=== PATIENT | male | born 1970 | race Caucasian/White ===

== ENCOUNTER 2020-08-25 13:55 | Outpatient (CLI) | payer OTHER, SELFPAY ==
--- NOTE | ~2020-08-25 | US_ITS ---
EXAMINATION: US venous doppler [facility] DATE: 08/25/2020 15:27 INDICATION: Lower limb pain. TECHNIQUE: Grayscale ultrasound images without and with compression and Doppler ultrasound images of the bilateral lower extremity veins were obtained. COMPARISON: None. FINDINGS: The visualized portions of right common femoral vein, profunda (deep) femoral vein, femoral vein, pop liteal vein, peroneal veins, posterior tibial veins, and greater saphenous vein outflow are patent. The visualized portions of left common femoral vein, profunda femoral vein, femoral vein, popliteal v ein, peroneal veins, posterior tibial veins, and greater saphenous vein outflow are patent. IMPRESSION: 1. No deep venous thrombosis. Reviewed, dictated and finalized at location A.
== END 2020-08-25 13:56 | disposition home or self-care (01) ==
PROVIDERS: PCP Family Medicine; Visit Provider Physician Assistant Medical
DX: M79.606 Pain in leg, unspecified (principal); M79.89 Other specified soft tissue disorders
CPT/HCPCS: 93970

== ENCOUNTER 2020-08-30 13:30 | Inpatient (IN) | payer OTHER, SELFPAY ==
[2020-08-30] VITALS (8 sets, daily range): BP systolic 137–150; BP diastolic 68–88; PULSE 58–97; RESP 18–24; TEMP 36.3–37.4; O2SAT 82–100; BMI 48.2
--- NOTE | ~2020-08-30 | US_ITS ---
US right upper quadrant DATE: 08/31/2020 16:35 INDICATION: Elevated liver function tests TECHNIQUE: Real-time imaging and Doppler analysis, right upper quadrant COMPARISON: None FINDINGS: Examination is limited due to body habitus. Consider CT abdomen examination for more detail . There is heterogeneous echotexture of the liver with suggestion of fatty infiltration. Hepatic space- occupying mass lesion is not excluded. CT examination with IV contrast material or MRI examination wo uld be helpful for further evaluation. There is pulsatile to and fro flow in the portal vein. No gallstones or gallbladder wall thickening or abnormal pericholecystic fluid collection are noted. The common bile duct measures approximately 6 mm, borderline size. IMPRESSION: Heterogeneous echotexture of the liver; consider CT abdomen or MRI abdomen examination wi th particular attention to the liver Reviewed, dictated and finalized at Location A. Reviewed, dictated and finalized at location B. IMPRESSION: Heterogeneous echotexture of the liver; consider CT abdomen or MRI abdomen examination with particular attention to the liver
--- NOTE | ~2020-08-30 | XR_ITS ---
EXAMINATION: XR chest 1V portable DATE: 08/30/2020 14:17 INDICATION: Shortness of breath. TECHNIQUE: A single frontal view of the chest was obtained. COMPARISON: Chest 2 views 08/06/2017 FINDINGS: The patient is rotated to his right. There is mild atelectasis in the lower lung zones. The re are prominent paracardial fat pads. No pleural effusion or pneumothorax. The heart size is normal. IMPRESSION: 1. Mild atelectasis in the lower lung zones. Reviewed, dictated and finalized at location A.
--- NOTE | ~2020-08-30 | XR_ITS ---
EXAMINATION: XR chest 1V portable EXAM DATE: 09/01/2020 10:20 INDICATION: Hypoxia. TECHNIQUE: Portable AP frontal chest x-ray was obtained. Comparison is made to prior examination from 08/31/2020. FINDINGS: The cardiac silhouette is enlarged. There is pulmonary vascular congestion. There is indist inct reticulation with a bibasal predominance which may indicate pulmonary edema. 4 pronounced linear opacity consistent with atelectasis in the right lung zone. Otherwise no significant interval change in findings suspicious for CHF exacerbation. Possible small pleural effusions. There are no osseous abnormalities identified. IMPRESSION: 1. Congestive changes, possible mild pulmonary edema. 2. Developing linear right basilar opacity most consistent with atelectasis. Infection not excludabl e. Reviewed, dictated and finalized at location A. IMPRESSION: 1. Congestive changes, possible mild pulmonary edema. 2. Developing linear right basilar opacity most consistent with atelectasis. I nfection not excludable.
--- NOTE | ~2020-08-30 | CT_ITS ---
EXAMINATION: CTA chest PE protocol DATE: 08/30/2020 15:01 INDICATION: Chest pain. Low oxygen saturation. TECHNIQUE: Computed tomography angiography (CTA) of the chest was performed with 100 mL Omnipaque-350 intravenous contrast timed to evaluate the pulmonary arteries. Coronal maximum intensity projection 3D-reconstructions were created by the technologist. Automated exposure control and iterative reconst ruction technique were employed. The dose-length product was 1067.89 mGy-cm. COMPARISON: Chest single view 08/30/2020 FINDINGS: There is mild atelectasis in the inferior lungs. There is a right posterior diaphragmatic h ernia containing fat. Mediastinal lipomatosis is noted. There is a left-sided superior vena cava. The re is interruption of the inferior vena cava with hemiazygos continuation. The heart size is normal. No pericardial effusion. Main pulmonary artery is enlarged, consistent with pulmonary arterial hypert ension. There is no pulmonary embolus. There is an old healed right rib fracture. There is chronic an terior wedging of T11 and T12 vertebral bodies. IMPRESSION: 1. No pulmonary embolus. Sensitivity is mildly decreased by motion artifact. Reviewed, dictated and finalized at location A.
--- NOTE | ~2020-08-30 | XR_ITS ---
EXAMINATION: XR chest 1V portable EXAM DATE: 08/31/2020 12:21 INDICATION: Shortness breath, diaphoresis. TECHNIQUE: Portable AP frontal chest x-ray was obtained. Comparison is made to prior examination from 08/30/2020. FINDINGS: There is pulmonary vascular congestion. There is indistinct reticulation with a bibasal pre dominance which may indicate pulmonary edema. Possible small right pleural effusion. No confluent con solidation or pneumothorax. IMPRESSION: Most consistent with CHF exacerbation. Clinical correlation. Reviewed, dictated and finalized at location A.
--- NOTE | ~2020-08-30 | MR_ITS ---
EXAMINATION: MR abdomen wo/w con DATE: 09/02/2020 08:44 INDICATION: Abnormal liver ultrasound. TECHNIQUE: Magnetic resonance imaging (MRI) of the abdomen was performed without and with 20 mL Multi sola intravenous contrast. Sequences included coronal T2-weighted SS-FSE, coronal and axial FS 2D-F IESTA, axial STIR FSE, axial T2-weighted SS-FSE, axial T2-weighted FS SS-FSE, axial diffusion-weighte d SE, axial dual-echo T1-weighted FSPGR, and axial and coronal T1-weighted LAVA. Postcontrast axial T 1-weighted LAVA images were obtained in a time course. Postcontrast coronal T1-weighted LAVA images w ere obtained. COMPARISON: Ultrasound dated 08/31/[address] dated 08/30/2020 FINDINGS: Linear bands of discoid atelectasis in the bilateral lower lobes and right middle lobe with additiona l dependent consolidation in the posterior aspect of the bilateral lower lobes. Small fat-containing Bochdalek hernia at the posterior right lung base. Trace bilateral pleural effusion. Cardiomegaly. No pericardial effusion. Hepatomegaly with heterogeneous pattern of signal dropout throughout the liver on opposed phase images consistent with diffuse hepatic steatosis which likely accounts for the appe arance on prior ultrasound. No other abnormal hepatic parenchymal lesions. No intra or extra hepatic biliary ductal dilation. Splenosis in the left upper quadrant. Gallbladder, pancreas, bilateral adren al glands and kidneys are normal. Visualized portions of the bowels are unremarkable. No pathological ly enlarged abdominal lymphadenopathy. Bones are unremarkable with normal marrow signal. IMPRESSION: 1. Hepatomegaly with heterogeneous diffuse hepatic steatosis which likely account for the heterogeneo us echogenicity on prior ultrasound. No suspicious hepatic lesions identified. 2. Trace bilateral pleural effusions with consolidation in the dependent aspect of the bilateral lowe r lobes most likely atelectasis although differential includes pneumonia. Reviewed, dictated and finalized at location A. IMPRESSION: 1. Hepatomegaly with heterogeneous diffuse hepatic steatosis which likely accou nt for the heterogeneous echogenicity on prior ultrasound. No suspicious hepati c lesions identified. 2. Trace bilateral pleural effusions with consolidation in the dependent aspect of the bilateral lower lobes most likely atelectasis although differential inc ludes pneumonia.
--- NOTE | ~2020-08-30 | XR_ITS ---
EXAMINATION: XR chest 2V EXAM DATE: 09/03/2020 08:10 INDICATION: Bilateral leg cellulitis. Hypoxia. TECHNIQUE: Portable AP frontal chest x-ray was obtained. Comparison is made to prior examination from 09/01/2020. FINDINGS: Again there is cardiomegaly. There is improvement in the previously pulmonary vascular bubba estion and indistinct reticulation. Small amount of bibasilar linear atelectasis. Mild hyperinflation . No pneumothorax. Small pleural effusions. IMPRESSION: 1. Improving congestive changes. 2. Linear bibasilar atelectasis. 3. Small pleural effusions. Reviewed, dictated and finalized at location A.
--- NOTE | 2020-08-30 13:46 | ECG_ITS ---
Measurements Intervals [place] Rate: 94 P: 16 CO: 107 QRS: 102 QRSD: 113 T: 63 QT: 362 QTc: 455 Interpretive Statements SINUS RHYTHM WITH SHORT CO INTERVAL RIGHT AXIS DEVIATION INCOMPLETE RIGHT BUNDLE BRANCH BLOCK BORDERLINE T WAVE ABNORMALITY- INFERIOR LEADS BASELINE ARTIFACT- V1, V5-V6 BORDERLINE ECG Electronically Signed On 08-30-2020 14:02:38 CDT by Umair Ramirez D.O.
--- NOTE | 2020-08-30 13:49 | ED.GENADULT ---
HPI - General Adult General Chief complaint: Skin/Abscess/Foreign Body Stated complaint: CELLULITIS ON MY LEG Time Seen by Provider: 08/30/20 13:34 Source: patient Mode of arrival: ambulatory Limitations: no limitations History of Present Illness HPI narrative: Patient is a 50-year-old male who presents from Dr. Bui's office for evaluation of right leg redness and swelling that is been present for 1 week patient was placed on Bactrim which she has taken for 5 days started on clindamycin for the last 2 days patient was seen today in the clinic and was sent in for worsening swelling and redness patient denies similar occurrence in the past patient notes no injury or trauma patient presents hypoxic and notes that he smokes over a pack per day and is always in the 80s patient denies dyspnea or URI symptoms. Related Data Allergies Allergy/AdvReac Type Severity Reaction Status Date / Time No Known Allergies Allergy Verified 08/30/20 12:48 Review of Systems Review of Systems: All systems reviewed & are unremarkable except as noted in HPI and below PMFSH Past Medical History Medical History (Updated 08/30/20 @ 17:42 by Jasper Licea PA-C) Morbid obesity Tobacco abuse Social History Social History Smoking status: Current every day smoker Alcohol intake: never Gender identity (if verbalized by the patient): Male Exam Narrative: Exam Narrative: GENERAL: Well-appearing, morbidly obese, and in no acute distress. HEAD: Normocephalic, atraumatic. EYES: PERRLA and EOMI. ENT: Nares clear, no rhinorrhea or epistaxis. Mucous membranes moist. Oropharynx without tonsillar hypertrophy exudate or other lesions. NECK: Supple. No adenopathy or masses. CHEST: Diminished on auscultation. No respiratory distress. Coarse breath sounds and wheezing throughout the lung leos HEART: Regular rate and rhythm. No murmur heard. Normal peripheral pulses. ABDOMEN: Soft, nontender, nondistended, normal active bowel sounds. EXTREMITIES: Normal range of motion. No edema. Patient with redness and swelling extending from the level of the ankle up into the lower abdomen and pannus SKIN: Warm, dry, no rash. NEURO: No focal deficits. Alert and oriented x3. Neurovascularly intact. Capillary refill less than 2 seconds PSYCH: Normal mood and affect. Course Reevaluation(s) Reevaluation #1: Patient refusing any updraft treatment for his wheezing Date: 08/30/20 Time: 13:52 Consultations Consultation #1: Discussed case with hospitalist who is agreed to accept the patient Date: 08/30/20 Time: 17:40 Vital Signs Vital signs: Vital Signs Temperature 99.3 F 08/30/20 13:41 Pulse Rate 97 08/30/20 13:41 Respiratory Rate 08/30/20 13:41 Blood Pressure 141/88 H 08/30/20 13:41 Pulse Oximetry 82 L 08/30/20 13:41 Temperature 99.3 F 08/30/20 13:41 Pulse Rate 58 L 08/30/20 15:00 Respiratory Rate 18 08/30/20 15:00 Blood Pressure 150/83 H 08/30/20 15:00 Pulse Oximetry 90 08/30/20 15:00 Medical Decision Making MDM Narrative Medical decision making narrative: Patient in the room will be treated for cellulitis refused any treatment of his COPD related symptoms to include breathing treatment was made aware of the risks of hypoxemia is still refusing to do so patient would likely hypoxemic hypercarbic respiratory distress secondary to possible sleep apnea and COPD. Patient will be placed in hospital treated with fluids and antibiotic Vital Signs Vital Signs: Vital Signs Temperature 99.3 F 08/30/20 13:41 Pulse Rate 97 08/30/20 13:41 Respiratory Rate 08/30/20 13:41 Blood Pressure 141/88 H 08/30/20 13:41 Pulse Oximetry 82 L 08/30/20 13:41 Temperature 99.3 F 08/30/20 13:41 Pulse Rate 58 L 08/30/20 15:00 Respiratory Rate 18 08/30/20 15:00 Blood Pressure 150/83 H 08/30/20 15:00 Pulse Oximetry 90 08/30/20 15:00 Lab Data Resul
[2020-08-30 14:01] LABS: Alveolar/Arterial O2 Gradient 105.3 mmHg; Base Excess ABG 2.5 mEq/l (+/-2.0); Fractional Inspired Oxygen 32 %; HCO3 ABG 29.5 mEq/l (22.0-26.0); Methemoglobin ABG 0.2 %THb (0-1.5); Oxygen Content ABG 21.2 %vol (16.0-22.0); Oxyhemoglobin 83.8 % THb (90.0-100.0); PCO2 ABG 53.3 mmHg (35.0-45.0); PO2 ABG 60.5 mmHg (80.0-100.0); PO2 FiO2 Ratio Arterial Blood 1.89 %; pH ABG 7.361 (7.350-7.450)
[2020-08-30 14:02] LABS: Device NASAL CANNULA; Modified Allen's Test Pass; Site Drawn RIGHT RADIAL
[2020-08-30 14:24] LABS: Basophils Absolute Auto 0.1 K/mm3 (0.0-0.1); Basophils Percent Auto 0.6 % (0.2-1.2); Eosinophils Absolute Auto 0.1 K/mm3 (0-0.3); Eosinophils Percent Auto 1.2 % (0-4.4); Hematocrit 53.5 % (42.0-52.0); Hemoglobin 17.5 g/dL (14.0-18.0); Immature Granulocyte Absolute 0.05 K/mm3 (0.00-0.031); Immature Granulocyte Percent A 0.6 % (0-0.5); Lymphocytes Absolute Auto 1.37 K/mm3 (0.9-3.2); Lymphocytes Percent Auto 15.4 % (18.3-44.2); Mean Corpuscular HGB Conc 32.7 g/dl (32-36); Mean Corpuscular Hemoglobin 32.7 pg (26-34); Mean Platelet Volume 11.2 fl (7.4-10.4); Neutrophils Absolute Auto 6.3 K/mm3 (1.3-6.7); Neutrophils Percent Auto 71.2 % (45.5-73.1); Platelet Count Result 197 k/mm3 (150-375); Red Blood Count 5.35 M/mm3 (4.6-6.20); Red Cell Distribution Width 13.8 % (11.5-14.5); White Blood Count 8.9 K/mm3 (4.5-10.0)
[2020-08-30] MEDS: SODIUM CHLORIDE 0.9% IV 1,000 ML 999 ML IV CONT (14:25)
[2020-08-30 14:33] LABS: INR 1.2; Prothrombin Time 14.6 Seconds (11.1-14.7)
[2020-08-30 14:34] LABS: Partial Thromboplastin Time 30.4 SECONDS (22.3-36.8)
[2020-08-30 14:42] LABS: Alanine Aminotransferase 106 U/L (4-50); Albumin Level 3.7 g/dL (3.5-5.1); Alkaline Phosphatase 128 U/L (38-126); Anion Gap 4 mmol/L (8-16); Aspartate Amino Transferase 62 U/L (17-59); Bilirubin,Total 0.8 mg/dL (0.2-1.3); Blood Urea Nitrogen 15 mg/dL (9-20); CRP 4.4 mg/dL (<1.0); Calcium 9.3 mg/dL (8.4-10.2); Carbon Dioxide 38 mmol/L (22-30); Chloride 95 mmol/L (98-107); Estimated CRCL calculation 193 ml/min; Estimated Glomerular Filt Rate > 60; Glucose 276 mg/dL (75-110); Potassium 4.8 mmol/L (3.4-5.0); Sodium 137 mmol/L (137-145)
[2020-08-30 14:44] LABS: NT Pro B Type Natriuretic Pept 108 PG/ML (5-100)
[2020-08-30 14:51] LABS: Lactic Acid Reflex 0.9 mmol/L (0.7-2.1)
[2020-08-30 14:54] LABS: Estimated CRCL calculation 193 ml/min; Estimated Glomerular Filt Rate > 60
--- NOTE | 2020-08-30 18:48 | PC.NURSE ---
Called to give report on pt and was told by Kym that nurse was in another room and will call me back.
--- NOTE | 2020-08-30 18:51 | PC.NURSE ---
This RN into pts room to go over belongings sheet. Pts O2 was at 86 on 4L NC. This RN informed GREG Licea of this and he stated to put pt on a non rebreather and keep him at 4L. This RN back into pts room to put him on non rebreather and inform him why and pt declined. Informed GREG Bhakta of this.
--- NOTE | 2020-08-30 19:15 | PC.NURSE ---
called again to give report and was told that they were in the middle of report and to hold on. Had to answer a call light and had to hang up after 7 minutes of being on hold.
[2020-08-30] MEDS: LACTATED RINGERS 1,000 ML 125 ML IV CONT (21:20)
[2020-08-30] MEDS: FAMOTIDINE 20 MG/2 ML VIAL IV PUSH (21:22)
[2020-08-30] MEDS: IPRATROPIUM BR 0.02% INH SOLN 0.5 MG/2.5 ML VIAL INHALATION (21:26)
[2020-08-30] MEDS: ALBUTEROL SULFATE NEB 2.5 MG/0.5 ML INH 5 MG INHALATION (21:26)
--- NOTE | 2020-08-30 22:06 | PM.IMHP ---
H&P: HPI History of Present Illness Date/Time: 08/30/20 22:06 Chief complaint: Cellulitis, hypoxemia, hyperglycemia, COPD Narrative: Haja Arroyo is a 50 year old male With a past medical history of asthma. The patient called on 08/10/2020 to the primary care office and was given inhalers. The patient was wheezing at that time. He said he had a asthma attack after cutting grass. On 08/25/2020 the patient had increased swelling to right lower extremity for couple days in the pain was getting worse. Patient does have a history of peripheral vascular disease with chronic venous stasis. He is also a current smoker. He had venous Dopplers at that time and he reported them as negative. The patient was started on Bactrim. Patient call in on 08/30/2020 to primary care office and had been on Bactrim for 5 days and clindamycin for 2 days. Dopplers were noted to be negative. Patient was sent to the emergency for further evaluation. The patient has redness noted from his ankle all the way up past his umbilical area. He has redness tenderness the right leg is warm to touch. He has noted to have chronic venous stasis. Patient denies any chronic diseases other than asthma. His white count was noted to be normal today. His CT a from today was negative for pulmonary emboli. Patient was also hypoxic and short of breath so he had oxygen apply at 4 L per nasal cannula at the emergency room here. His chest x-ray was read as mild atelectasis in the lower lung zone. Patient was ordered IV Tylenol and started on vancomycin. He was started on IV fluids as well. Patient was admitted to inpatient to medical floor date of service on 08/30/2020 Review of Systems Review of Systems: All systems reviewed & are unremarkable except as noted in HPI and below Constitutional: Constitutional: Reports as per HPI and Reports no additional constitutional complaints Eyes: Eyes: Reports as per HPI and Reports no additional eye complaints ENT: Reports system reviewed and no additional complaints, except as documented and Reports Normal hearing present Cardiovascular: Cardiovascular: Reports no additional cardiovascular complaints Respiratory: Respiratory: Reports no additional respiratory complaints and Reports no additional respiratory complaints Gastrointestinal: Gastrointestinal: Reports as per HPI and Reports no additional gastrointestinal complaints Musculoskeletal: Musculoskeletal: Reports no additional musculoskeletal complaints Integumentary/Breasts: Skin/Breast: Reports system reviewed and no additional complaints, except as docu and Reports as per HPI Neurologic: Reports system reviewed and no additional complaints, except as documented, Reports as per HPI and Reports Normal hearing present Psychiatric: Psychiatric: Reports no additional psychiatric complaints and Reports as per HPI Endocrine: Endocrine: Reports no additional endocrine complaints Hematologic/Lymphatic: Hematologic/Lymphatic: Reports no additional hematologic/lymphatic complaints Allergic/Immunologic: Allergic/Immunologic: Reports no additional allergic/immunologic complaints [facility] Past Medical History Medical History (Updated 08/30/20 @ 22:15 by Tamara Guzman NP) Morbid obesity BMI 48.1 Peripheral vascular disease Tobacco abuse Surgical History Surgical History (Updated 08/30/20 @ 22:15 by Tamara Guzman NP) No pertinent past surgical history Family History Family History (Updated 08/30/20 @ 22:15 by Tamara Guzman NP) Unknown Unknown family medical history Social History Social History (Updated 08/30/20 @ 22:17 by Tamara Guzman NP) Social History: the patient is and lives with his . 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 Patient continues to smoke about a pack and half a cigarettes a day. He said he just quit about 12 hours ago. He denies any alcohol
[2020-08-30 22:12] LABS: Glucose Point of Care 223 (65-105)
[2020-08-31] VITALS (20 sets, daily range): BP systolic 117–174; BP diastolic 59–82; PULSE 83–94; RESP 16–28; TEMP 36–37; O2SAT 88–95
--- NOTE | 2020-08-31 | ECHO_ITS ---
Patient Info Name: Haja Arroyo Age: 50 years : 1970 Gender: Male Ht: 71 in Wt: 345 lbs BSA: 2.88 m2 HR: 88 bpm BP: 117 / 59 mmHg Technical Quality: Poor Exam Date: 08/31/2020 9:35 AM Exam Location: [facility] Patient Status: Inpatient Admit Date: 08/30/2020 Staff Ordering Physician: Tamara Guzman NP Straight Ruling Machine Operator: Zac Nguyễn RDCS, RT Attending Provider: Starr Alexandre PA-C Referring Physician: Megan OGLESBY; Exam Type: CA echo dop color flow w con Study Info Indications R60.0 - Localized edema Complete two-dimensional, color flow and Doppler transthoracic echocardiogram is performed with contrast to opacify the left ventricle and to improve the deliniation of the left ventricle endocardial borders. Summary 1. Technically suboptimal study due to poor sonographic images. 2. Definity contrast administered improved wall motion interpretation. 3. Left ventricular chamber dimension is normal. 4. Left ventricular systolic function is normal, estimated at 65-70%. 5. The left ventricular diastolic function is abnormal. 6. E/e' 11 is mildly elevated. 7. The aortic valve is not well visualized. 8. The mitral valve has not well visualized. 9. The tricuspid valve leaflets are not well visualized. 10. There is mild tricuspid valve regurgitation. Left Ventricle Technically suboptimal study due to poor sonographic images. Definity contrast administered improved wall motion interpretation. E/e' 11 is mildly elevated. Left ventricular chamber dimension is normal. Left ventricular systolic function is normal, estimated at 65-70%. The left ventricular diastolic function is abnormal. Right Ventricle Right ventricular chamber dimension is not well visualized. Left Atria Left atrial chamber dimension is not well visualized. Right Atria Right atrial chamber dimension is not well visualized. Aortic Valve The aortic valve is not well visualized. There is no aortic valve stenosis. There is no aortic valve regurgitation. Pulmonic Valve The pulmonic valve is not well visualized. Mitral Valve The mitral valve has not well visualized. There is no mitral valve stenosis. There is no mitral valve regurgitation. Tricuspid Valve The tricuspid valve leaflets are not well visualized. There is mild tricuspid valve regurgitation. Moderate pulmonary hypertension, estimated pulmonary arterial systolic pressure is 59 mmHg. Pericardium/Pleural There is no pericardial effusion. Inferior Vena Cava Normal inferior vena cava with >50% collapse upon inspiration consistent with normal right atrial pressure, 5 mmHg. Aorta The aortic root size at the sinus of Valsalva is not well visualized. Left Ventricular Outflow Tract Name Value Normal LVOT Doppler LVOT Peak Gradient 9 mmHg LVOT Mean Gradient 6 mmHg LVOT VTI 24.56 cm LVOT VTI/AV VTI Ratio 0.75 Mitral Valve Name Value Normal MV Doppler
[2020-08-31] MEDS: ALBUTEROL SULFATE NEB 2.5 MG/0.5 ML INH 5 MG INHALATION ×4 (02:15→21:28)
[2020-08-31] MEDS: IPRATROPIUM BR 0.02% INH SOLN 0.5 MG/2.5 ML VIAL INHALATION ×3 (02:15→13:15)
[2020-08-31] MEDS: methylPREDNISolone SOD SUCC 125 MG VIAL 60 MG IV PUSH ×2 (05:47→15:17)
[2020-08-31 05:59] LABS: Basophils Percent Auto 0.5 % (0.2-1.2); Eosinophils Absolute Auto 0.1 K/mm3 (0-0.3); Eosinophils Percent Auto 1.3 % (0-4.4); Hematocrit 53.5 % (42.0-52.0); Immature Granulocyte Absolute 0.04 K/mm3 (0.00-0.031); Immature Granulocyte Percent A 0.5 % (0-0.5); Lymphocytes Absolute Auto 0.83 K/mm3 (0.9-3.2); Lymphocytes Percent Auto 9.9 % (18.3-44.2); Mean Corpuscular HGB Conc 31.8 g/dl (32-36); Mean Corpuscular Hemoglobin 32.3 pg (26-34); Mean Corpuscular Volume 101.5 fl (80-100); Mean Platelet Volume 11.2 fl (7.4-10.4); Monocytes Absolute Auto 0.8 K/mm3 (0.1-0.6); Monocytes Percent Auto 9.5 % (2.6-8.5); Neutrophils Absolute Auto 6.6 K/mm3 (1.3-6.7); Neutrophils Percent Auto 78.3 % (45.5-73.1); Platelet Count Result 191 k/mm3 (150-375); Red Blood Count 5.27 M/mm3 (4.6-6.20); Red Cell Distribution Width 13.9 % (11.5-14.5); White Blood Count 8.4 K/mm3 (4.5-10.0)
[2020-08-31 06:23] LABS: Hemoglobin A1C 10.1 % (<5.7)
[2020-08-31 06:44] LABS: Anion Gap 3 mmol/L (8-16); Blood Urea Nitrogen 12 mg/dL (9-20); Calcium 8.7 mg/dL (8.4-10.2); Carbon Dioxide 37 mmol/L (22-30); Chloride 95 mmol/L (98-107); Estimated CRCL calculation 193 ml/min; Estimated Glomerular Filt Rate > 60; Glucose 310 mg/dL (75-110); Potassium 5.2 mmol/L (3.4-5.0); Sodium 135 mmol/L (137-145)
[2020-08-31 08:02] LABS: Glucose Point of Care 305 (65-105)
[2020-08-31] MEDS: INSULIN ASPART (*BKC) 100 UNITS/ML SUB-Q ×3 (08:26→18:54)
[2020-08-31] MEDS: FAMOTIDINE 20 MG/2 ML VIAL IV PUSH ×2 (08:31→22:15)
[2020-08-31] MEDS: ENOXAPARIN 40 MG/0.4 ML SYRINGE SUB-Q (08:31)
[2020-08-31 08:38] LABS: Alanine Aminotransferase 99 U/L (4-50); Albumin Level 3.5 g/dL (3.5-5.1); Alkaline Phosphatase 113 U/L (38-126); Aspartate Amino Transferase 53 U/L (17-59); Bilirubin,Total 0.7 mg/dL (0.2-1.3)
[2020-08-31 09:42] LABS: Hepatitis B Surface Antigen Negative (Negative)
[2020-08-31 09:47] LABS: Iron 70 ug/dL (49-181)
[2020-08-31 09:47] LABS: HAV RESULT Negative (Negative)
[2020-08-31 09:54] LABS: Hepatitis C Virus Antibody Negative (Negative)
[2020-08-31 09:57] LABS: Percent Iron Saturation 18 % (20-50)
[2020-08-31 09:59] LABS: Hepatitis B Surface Anti Res Negative
[2020-08-31] MEDS: PERFLUTREN LIPID MICROSPHERES 1.5 ML VIAL DILUTED TO 10 ML TOTAL VOLUME IV PUSH (10:15)
[2020-08-31 10:52] LABS: Folic Acid 9.8 ng/mL (2.76->20)
[2020-08-31 11:56] LABS: Glucose Point of Care 286 (65-105)
[2020-08-31 12:26] LABS: Alveolar/Arterial O2 Gradient 91.7 mmHg; Base Excess ABG 4.9 mEq/l (+/-2.0); Fractional Inspired Oxygen 34 %; HCO3 ABG 35.8 mEq/l (22.0-26.0); Oxygen Content ABG 22.6 %vol (16.0-22.0); Oxyhemoglobin 85.9 % THb (90.0-100.0); PO2 ABG 58.3 mmHg (80.0-100.0); PO2 FiO2 Ratio Arterial Blood 1.71 %; Total Hemoglobin 18.8 g/dL (12.0-18.0)
[2020-08-31 12:28] LABS: pH ABG 7.273 (7.350-7.450)
[2020-08-31 12:29] LABS: Oxygen Saturation ABG 85.4 % (95.0-100.0); PCO2 ABG 79.3 mmHg (35.0-45.0)
--- NOTE | 2020-08-31 12:29 | PM.IMPN ---
Progress Note: A&P Assessment and Plan (1) Acute metabolic encephalopathy: Code(s): G93.41 - Metabolic encephalopathy Status: Acute Assessment and Plan: The patient became more difficult to arouse with a change in his mental status with associated confusion, trouble with his speech. Stat ABG was completed which showed he has respiratory acidosis with a pH of 7.273, pCO2 79, HC03 of 35. ABG oxygen saturation was 85% on 3.5 L of oxygen via nasal cannula.. He is being moved to the IMU and placed on a continuous BiPAP and we will recheck an ABG in 1 hour. Stat labs were drawn and pending. Concerns he could also be having metabolic encephalopathy secondary to underlying cellulitis infection, will check a lactic acid, CBC and CMP. CXR showed CHF exacerbation with signs of pulmonary vascular congestion and pulmonary edema. Secondary to the IV fluids he received in the emergency department on arrival but he is not on any IV fluids on the floor. Will give a dose of IV Lasix 20 mg and monitor his input and output. We were going to get a CT brain but we will hold at this time and place the patient on BiPAP stat and recheck ABG after 1 hour. Continue monitoring patient's mental status. (2) Acute respiratory failure with hypoxia and hypercapnia: Code(s): J96.01 - Acute respiratory failure with hypoxia; J96.02 - Acute respiratory failure with hypercapnia Status: Acute Assessment and Plan: Most likely caused by asthma exacerbation with wheezing throughout and requiring oxygen via nasal cannula and now some signs of pulmonary congestion. The patient is resting on 3 L via nasal cannula and he was found to be altered. Chest x-ray showing pulmonary congestion and pulmonary edema. Give IV Lasix 1 time Continue with IV Solu-Medrol 60 mg Q 8 hours and DuoNeb treatments q.6 hours. He has we placed on a BiPAP due to his hypercapnia and altered mental status. Continue monitoring patient's respiratory status. Appreciate respiratory's assistance (3) Cellulitis: Code(s): L03.90 - Cellulitis, unspecified Status: Acute Assessment and Plan: Patient has been dealing with right leg cellulitis up to his stomach for 4 days and has failed outpatient treatment with clindamycin (2 days) and Bactrim (5 days). On arrival he was started on IV Primaxin and vancomycin for the treatment of cellulitis with the patient with diabetes There are line surrounding his erythema and it appears to have improved slightly with IV antibiotics. Blood cultures are pending. The patient is afebrile, and his white count is normal. Continue monitoring improvement of cellulitis, continue IV antibiotics. (4) Diabetes mellitus, new onset: Code(s): E11.9 - Type 2 diabetes mellitus without complications Status: Acute Assessment and Plan: New onset diabetes with a hemoglobin A1c of 10.1%. Will start him on sliding scale insulin as well as Lantus 20 units tonight. Will consult clinical trial educator and dietitian for further evaluation Education. Continue monitoring making adjustments to his insulin regimen for better control especially with IV Solu-Medrol and underlying infection. Continue monitoring glucose ACHS. Hypoglycemic protocol in place. Sliding scale insulin initiated. (5) Asthma exacerbation: Code(s): J45.901 - Unspecified asthma with (acute) exacerbation Status: Acute Assessment and Plan: Patient reports history of asthma since a young age and has multiple asthma exacerbations and hospitalizations in the past. 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 He is a smoker but states he quit prior to arrival. Pulmonology was consulted on the case for further evaluation. He is currently on 3 L via nasal cannula in found to alcantar
[2020-08-31 12:30] LABS: Device NASAL CANNULA; Liters per Minute 3.5 LPM; Modified Allen's Test Pass; Site Drawn RIGHT RADIAL
[2020-08-31 12:34] LABS: Basophils Percent Auto 0.5 % (0.2-1.2); Hematocrit 57.4 % (42.0-52.0); Hemoglobin 17.9 g/dL (14.0-18.0); Immature Granulocyte Absolute 0.06 K/mm3 (0.00-0.031); Immature Granulocyte Percent A 0.7 % (0-0.5); Lymphocytes Absolute Auto 0.25 K/mm3 (0.9-3.2); Mean Corpuscular HGB Conc 31.2 g/dl (32-36); Mean Corpuscular Hemoglobin 32.3 pg (26-34); Mean Corpuscular Volume 103.6 fl (80-100); Mean Platelet Volume 10.9 fl (7.4-10.4); Monocytes Absolute Auto 0.1 K/mm3 (0.1-0.6); Neutrophils Absolute Auto 7.8 K/mm3 (1.3-6.7); Neutrophils Percent Auto 94.8 % (45.5-73.1); Platelet Count Result 190 k/mm3 (150-375); Red Blood Count 5.54 M/mm3 (4.6-6.20); Red Cell Distribution Width 13.9 % (11.5-14.5); White Blood Count 8.2 K/mm3 (4.5-10.0)
[2020-08-31 12:48] LABS: Lactic Acid Reflex 1.2 mmol/L (0.7-2.1)
[2020-08-31 12:49] LABS: Alanine Aminotransferase 100 U/L (4-50); Albumin Level 3.8 g/dL (3.5-5.1); Alkaline Phosphatase 135 U/L (38-126); Anion Gap 1.99999 mmol/L (8-16); Aspartate Amino Transferase 47 U/L (17-59); Bilirubin,Total 0.9 mg/dL (0.2-1.3); Blood Urea Nitrogen 12 mg/dL (9-20); Calcium 9.1 mg/dL (8.4-10.2); Carbon Dioxide > 40 mmol/L (22-30); Chloride 93 mmol/L (98-107); Estimated CRCL calculation 193 ml/min; Estimated Glomerular Filt Rate > 60; Glucose 328 mg/dL (75-110); Potassium 5.2 mmol/L (3.4-5.0); Sodium 135 mmol/L (137-145)
--- NOTE | 2020-08-31 13:10 | PC.NURSE ---
This patient, Haja Arroyo, was received from [facility] on 08/31/20 at 1310. Report received from KEN Contreras. Patient/family oriented to unit policies and routines
--- NOTE | 2020-08-31 13:16 | PC.NURSE ---
This patient, Haja Arroyo, was transferred to IMU on 08/31/20 at 1310. Personal belongings sent with patient. Report given to KEN Christopher. Appropriate documentation sent with patient.
[2020-08-31] MEDS: FUROSEMIDE INJ 40 MG/4 ML VIAL 20 MG IV PUSH (13:21)
[2020-08-31 14:44] LABS: Alveolar/Arterial O2 Gradient 200.7 mmHg; Base Excess ABG 4.8 mEq/l (+/-2.0); Fractional Inspired Oxygen 50 %; HCO3 ABG 34.4 mEq/l (22.0-26.0); Methemoglobin ABG 0.5 %THb (0-1.5); Oxygen Content ABG 23.3 %vol (16.0-22.0); Oxygen Saturation ABG 93.7 % (95.0-100.0); Oxyhemoglobin 91.3 % THb (90.0-100.0); PO2 ABG 76.8 mmHg (80.0-100.0); PO2 FiO2 Ratio Arterial Blood 1.54 %; Reduced Hemoglobin 5.2 %THb (0-5.0); Total Hemoglobin 18.2 g/dL (12.0-18.0); pH ABG 7.308 (7.350-7.450)
[2020-08-31 14:45] LABS: PCO2 ABG 70.2 mmHg (35.0-45.0)
[2020-08-31 14:46] LABS: Device NON-INVASIVE VENT; Modified Allen's Test Pass; Non-Invasive Expiratory Pressure 6 CMH2O; Non-Invasive Inspiratory Pressure 16 CMH2O; Non-Invasive Vent Rate 10 /MIN; Site Drawn RIGHT RADIAL
--- NOTE | 2020-08-31 15:09 | PM.CNPUL ---
Assessment and Plan Assessment and plan (1) Acute on chronic respiratory failure with hypoxia and hypercapnia: Code(s): J96.21 - Acute and chronic respiratory failure with hypoxia; J96.22 - Acute and chronic respiratory failure with hypercapnia Status: Acute Assessment and Plan: Likely due to combincation of OHS/MOHSEN and COPD. - patient current on BIPAP 11/05 and complaining that pressure is too high - will switch to CPAP 8 cm H20 - home oxygen assessment prior to discharge - rechecking SARS-CoV-2 given high risk work environment - 2D echo (2) COPD (chronic obstructive pulmonary disease): Qualifiers: COPD type: unspecified COPD Qualified Code(s): J44.9 - Chronic obstructive pulmonary disease, unspecified Code(s): J44.9 - Chronic obstructive pulmonary disease, unspecified Status: Acute Assessment and Plan: This patient likely has COPD rather than Asthma given his smoking history - agree with Symbicort 160/4.5 mcg 2 puffs bid, should be switch back to home dose of Breo Ellipta once discharged - will add Spiriva 18 mcg 1 puff daily - encouraged to quit smoking (3) MOHSEN (obstructive sleep apnea): Code(s): G47.33 - Obstructive sleep apnea (adult) (pediatric) Status: Acute Assessment and Plan: Will need home sleep study Will try CPAP 8 cm H20 while in hospital History of Present Illness History of Present Illness Consult date: 08/31/20 Chief complaint: Cellulitis, hypoxemia, hyperglycemia, COPD Narrative: 50 y/o obese male, chronic tobacco smoker with underlying undiagnosed MOHSEN presents to ER with RLE cellulitis not responding to outpatient antibiotics and was found to be hypoxic. He denies dyspnea but says he sleeps in a recliner. 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 About one month ago one colleague had COVID-19 but he was tested and was negative. CTA some bilateral ground glass opacities with bilateral atelectesis that's mild but no signs of acute pneumonia or profound CHF. BNP was 108 but in the setting obesity it may be falsely low. He denies fever, chills night sweats, body aches, new cough, sore throat, runny nose, loss of taste or smell or GI symptoms. His ABG showed some acute on chronic hypercapnic respiratory failure. He has 30-35 pack year smoking history and still smokes about 1 pack/day Review of Systems Review of Systems: All systems reviewed & are unremarkable except as noted in HPI and below PMFSH Past Medical History Medical History (Updated 08/31/20 @ 15:22 by Price Oliver MD) Morbid obesity BMI 48.1 Peripheral vascular disease Tobacco abuse Surgical History Surgical History (Updated 08/30/20 @ 22:15 by Tamara Guzman NP) No pertinent past surgical history Family History Family History (Updated 08/30/20 @ 22:15 by Tamara Guzman NP) Unknown Unknown family medical history Social History Social History (Updated 08/30/20 @ 22:17 by Tamara Guzman NP) Social History: the patient is and lives with his . 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 Patient continues to smoke about a pack and half a cigarettes a day. He said he just quit about 12 hours ago. He denies any alcohol or illicit drugs. Is noted that he uses marijuana. Smoking packs per day: 1.5 Smoking cigarettes per day: 30.0 Years smoked: 8 Smoking pack-years: 12.00 Smoking status: Current every day smoker Tobacco type: cigarettes Alcohol intake: former Substance use: current Substance use type: marijuana Last use: 08/21/2020 Living arrangements: with family Occupation/Education: occupation Gender identity (if verbalized by the patient): Male Spiritual care concerns: No Meds Home Medications and Allergies Home Medications Medication Instructions Recorded Confirmed Ty
[2020-08-31 17:48] LABS: Glucose Point of Care 309 (65-105)
[2020-08-31] MEDS: INSULIN GLARGINE (*BKC) 100 UNITS/ML 20 UNITS SUB-Q (22:17)
[2020-08-31 22:38] LABS: Glucose Point of Care 224 (65-105)
[2020-09-01] VITALS (28 sets, daily range): BP systolic 116–136; BP diastolic 58–80; PULSE 72–97; RESP 14–26; TEMP 36.1–36.8; O2SAT 90–96
[2020-09-01 01:23] LABS: Hematocrit 51.4 % (42.0-52.0); Hemoglobin 16.6 g/dL (14.0-18.0); Mean Corpuscular HGB Conc 32.3 g/dl (32-36); Mean Corpuscular Hemoglobin 32.7 pg (26-34); Mean Corpuscular Volume 101.2 fl (80-100); Mean Platelet Volume 11.2 fl (7.4-10.4); Platelet Count Result 198 k/mm3 (150-375); Red Blood Count 5.08 M/mm3 (4.6-6.20); Red Cell Distribution Width 13.5 % (11.5-14.5); White Blood Count 9.6 K/mm3 (4.5-10.0)
[2020-09-01 01:34] LABS: Alanine Aminotransferase 67 U/L (4-50); Albumin Level 3.2 g/dL (3.5-5.1); Alkaline Phosphatase 104 U/L (38-126); Anion Gap 1 mmol/L (8-16); Aspartate Amino Transferase 30 U/L (17-59); Bilirubin,Total 0.6 mg/dL (0.2-1.3); Blood Urea Nitrogen 13 mg/dL (9-20); CRP 3.1 mg/dL (<1.0); Calcium 8.6 mg/dL (8.4-10.2); Carbon Dioxide 39 mmol/L (22-30); Chloride 94 mmol/L (98-107); Cholesterol 154 mg/dL (0-200); Estimated CRCL calculation 228 ml/min; Estimated Glomerular Filt Rate > 60; Glucose 314 mg/dL (75-110); HDL Direct 21 mg/dL; Potassium 4.5 mmol/L (3.4-5.0); Sodium 134 mmol/L (137-145); Triglycerides 132 mg/dL (<150)
[2020-09-01 01:43] LABS: LDL Cholesterol Direct 123 mg/dL
[2020-09-01 02:19] LABS: Vancomycin Trough 7.5 ug/mL (10.0-20.0)
[2020-09-01] MEDS: ALBUTEROL SULFATE NEB 2.5 MG/0.5 ML INH 5 MG INHALATION ×4 (02:44→19:24)
--- NOTE | 2020-09-01 02:48 | PCRCNOTE ---
Pt refuses to wear CPAP tonight, complains that he doesn't need it.
--- NOTE | 2020-09-01 04:59 | PCRCNOTE ---
Pt having apneic episodes while sleeping. Pt desats down to mid 70's, pt still refuses to wear CPAP after multiple attempts.
[2020-09-01 08:07] LABS: Glucose Point of Care 280 (65-105)
[2020-09-01 08:41] LABS: Alveolar/Arterial O2 Gradient 204.4 mmHg; Base Excess ABG 6.8 mEq/l (+/-2.0); Carboxyhemoglobin 0.9 % THb (0-2.0); Fractional Inspired Oxygen 52 %; HCO3 ABG 36.8 mEq/l (22.0-26.0); Methemoglobin ABG 0.4 %THb (0-1.5); Oxygen Content ABG 23.7 %vol (16.0-22.0); Oxygen Saturation ABG 94.9 % (95.0-100.0); Oxyhemoglobin 94.1 % THb (90.0-100.0); PO2 ABG 83.1 mmHg (80.0-100.0); Reduced Hemoglobin 4.6 %THb (0-5.0); Total Hemoglobin 17.9 g/dL (12.0-18.0); pH ABG 7.313 (7.350-7.450)
[2020-09-01 08:44] LABS: Device NASAL CANNULA; Modified Allen's Test Pass; PCO2 ABG 74.3 mmHg (35.0-45.0); Site Drawn RIGHT RADIAL
[2020-09-01] MEDS: INSULIN ASPART (*BKC) 100 UNITS/ML SUB-Q ×2 (09:11→17:55)
[2020-09-01] MEDS: predniSONE 20 MG TABLET 40 MG PO (09:11)
[2020-09-01] MEDS: ENOXAPARIN 40 MG/0.4 ML SYRINGE SUB-Q (09:11)
[2020-09-01] MEDS: FAMOTIDINE 20 MG/2 ML VIAL IV PUSH ×2 (09:12→20:40)
--- NOTE | 2020-09-01 11:29 | PCDIET ---
Physician consult for diabetic education. Patient is PUI pending, spoke with patient over the phone today regarding diabetic education. See nutritional teaching. Thank you for the consult.
[2020-09-01 12:19] LABS: SARS-CoV-2 RNA PCR Negative
[2020-09-01] MEDS: FUROSEMIDE INJ 40 MG/4 ML VIAL 20 MG IV PUSH (12:46)
[2020-09-01 13:01] LABS: Glucose Point of Care 224 (65-105)
--- NOTE | 2020-09-01 14:19 | PM.IMPN ---
Progress Note: A&P Assessment and Plan (1) Acute metabolic encephalopathy: Code(s): G93.41 - Metabolic encephalopathy Status: Acute Assessment and Plan: 08/31/2020 The patient became more difficult to arouse with a change in his mental status with associated confusion, trouble with his speech. This was secondary to acute respiratory failure with hypercapnia. It improved with BiPAP use. Evaluated for worsening sepsis from cellulitis infection but lactic was normal and cellulitis is improving. He is back to his baseline at this time, A&O x4. Able make decisions on his own. Continue monitoring his mental status specially because he is refusing the BiPAP and his CO2 has elevated since last night. Explained to patient the risks of CO2 retention and possibility that he may need to be intubated if his condition becomes worse. He understands the risks and does not want with BiPAP. (2) Acute respiratory failure with hypoxia and hypercapnia: Code(s): J96.01 - Acute respiratory failure with hypoxia; J96.02 - Acute respiratory failure with hypercapnia Status: Acute Assessment and Plan: 08/31/2020 The patient became more difficult to arouse with a change in his mental status with associated confusion, trouble with his speech. Stat ABG was completed which showed he has respiratory acidosis with a pH of 7.273, pCO2 79, HC03 of 35. ABG oxygen saturation was 85% on 3.5 L of oxygen via nasal cannula. He was moved to the IMU and placed on a continuous BiPAP. ABG after wearing BiPAP for about 1 hour did improve his pCO2 to 70 and pH. He was also back to his baseline without any issues. The patient tolerated BiPAP until around 7:00 p.m. last night and then refused to wear at rest the night. He continued to be hypoxic so they had to put him on a high-flow nasal cannula. He still desatted when he would fall asleep showing signs of obstructive sleep apnea and obesity hypoventilation syndrome. Since he would not wear his BiPAP all night his ABG this morning showed pCO2 of 74 but pH was still slightly improved. CXR showed CHF exacerbation with signs of pulmonary vascular congestion and pulmonary edema. Secondary to the IV fluids he received in the emergency department on arrival but he is not on any IV fluids on the floor. Fluid balance was -1930 cc total. Will give another dose of IV Lasix 20 mg and monitor his input and output. He is alert and oriented x4, able to make his own decisions in states he will not wear the BiPAP again. Pulmonology is on the case and placed him on a CPAP which he is tolerating more at this time. IV Solu-medrol was discontinued and started on Prednisone 40 mg daily along with Duoneb treatments Q6hrs. COVID was negative on 08/31/2020. Continue monitoring patient's respiratory status. 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 On arrival he was started on IV Primaxin and vancomycin for the treatment of cellulitis with the patient with diabetes There are line surrounding his erythema and it appears to have improved with IV antibiotics. Blood cultures show no growth at this time. The patient is afebrile, and his white count is normal. Continue monitoring improvement of cellulitis, continue IV antibiotics. (4) Diabetes mellitus, new onset: Code(s): E11.9 - Type 2 diabetes mellitus without complications Status: Acute Assessment and Plan: New onset diabetes with a hemoglobin A1c of 10.1%. Will start him on sliding scale insulin as well as Lantus 25 units tonight. Will consult d
--- NOTE | 2020-09-01 14:54 | PM.PNPUL ---
Progress Note: A&P Assessment and Plan (1) COPD (chronic obstructive pulmonary disease): Qualifiers: COPD type: unspecified COPD Qualified Code(s): J44.9 - Chronic obstructive pulmonary disease, unspecified Code(s): J44.9 - Chronic obstructive pulmonary disease, unspecified Status: Acute Assessment and Plan: continue Symibicort and Spiriva as prescribed switch symbicort to home Breo Ellipta once discharged home oxygen assessment prior to discharge. it is very likely that he will need home oxygen (2) MOHSEN (obstructive sleep apnea): Code(s): G47.33 - Obstructive sleep apnea (adult) (pediatric) Status: Acute Assessment and Plan: - continue CPAP 8 cm H20 - home sleep study order as outpatient (3) Acute on chronic respiratory failure with hypoxia and hypercapnia: Code(s): J96.21 - Acute and chronic respiratory failure with hypoxia; J96.22 - Acute and chronic respiratory failure with hypercapnia Status: Acute Time Spent With Patient Time with patient: 15 - 25 minutes Subjective Date/time seen: 09/01/20 14:54 Interval history: Doing better. On 8 liters high flow oxygen. Review of Systems Review of Systems: All systems reviewed & are unremarkable except as noted in HPI and below Exam Const: General: comfortable and no acute distress Eyes: General: appearance normal, both eyes and all related structures Neck: Neck: supple and no JVD Resp: Auscultation: wheezes and diminished lung sounds Cardio: Rate: regular rate Rhythm: regular rhythm GI: GI Palp: Yes Soft to palpation Auscultation: normal bowel sounds Skin: General skin exam: normal color Other: RLE cellulitis and chronic venous stasis discoloration Extrem: General: normal to inspection Psych: Mental Status: mental status grossly normal Affect: normal affect Objective Data Vital Signs Vital Signs: Vital Signs - 24 hr 08/31/20 16:00 08/31/20 20:00 08/31/20 20:20 Temperature 36.0 C L 36.4 C L Pulse Rate 87 89 89 Respiratory Rate 28 H 26 H 18 Blood Pressure 136/81 138/76 Pulse Oximetry 90 90 92 08/31/20 21:15 08/31/20 21:28 08/31/20 22:00 Temperature Pulse Rate 93 93 89 Respiratory Rate 26 H 26 H Blood Pressure Pulse Oximetry 08/31/20 23:26 08/31/20 23:50 09/01/20 00:00 Temperature 36.4 C Pulse Rate 83 89 81 Respiratory Rate 18 18 24 H Blood Pressure 134/80 Pulse Oximetry 92 88 L 90 09/01/20 00:15 09/01/20 02:00 09/01/20 02:44 Temperature Pulse Rate 92 72 97 Respiratory Rate 16 26 H Blood Pressure Pulse Oximetry 93 09/01/20 02:49 09/01/20 04:00 09/01/20 06:00 Temperature 36.6 C Pulse Rate 97 80 76 Respiratory Rate 26 H 26 H Blood Pressure 132/78 Pulse Oximetry 96 09/01/20 08:00 09/01/20 08:30 09/01/20 08:40 Temperature 36.8 C Pulse Rate 85 89 94 Respiratory Rate 20 22 H 22 H Blood Pressure 116/59 L Pulse Oximetry 91 92 09/01/20 10:00 09/01/20 12:00 09/01/20 12:45 Temperature 36.8 C Pulse Rate 86 80 84 Respiratory Rate 20 Blood Pressure 132/67 Pulse Oximetry 90 90 09/01/20 14:00 Temperature Pulse Rate 81 Respiratory Rate Blood Pressure Pulse Oximetry Intake/Output Intake/Output: Intake & Output 08/29/20 08/30/20 08/31/20 09/01/20 23:59 23:59 23:59 23:59 Intake Total 1800 2600 620 Output Total 2250 2350 Balance 1800 350 -1730 Meds/Results Medications: Active Medications Generic Name Dose Route Start Last Admin Trade Name Freq PRN Reason Stop Dose Admin Albuterol 5 mg 08/30/20 20:00 09/01/20 13:24 Albuterol Sulf Neb 2.5mg/0.5ml INHALATION 5 mg Q6HRT [facility] Administration Atorvastatin Calcium 40 mg 09/02/20 09:00 Lipitor PO DAILY [facility] Budesonide/Formoterol Fumarate 2 puff 08/31/20 08:00 09/01/20 08:30 Symbicort 160-4.5 Mcg (*Sp) Inhaler INHALATION 2 puff Q12HRT [facility] Administration Dextrose 12.5 gm 08/30/20 22:04 Dextrose 50%
[2020-09-01 17:00] LABS: Glucose Point of Care 338 (65-105)
[2020-09-01 20:24] LABS: Glucose Point of Care 230 (65-105)
[2020-09-01] MEDS: INSULIN GLARGINE (*BKC) 100 UNITS/ML 25 UNITS SUB-Q (20:42)
[2020-09-02] VITALS (22 sets, daily range): BP systolic 116–144; BP diastolic 50–78; PULSE 69–85; RESP 17–24; TEMP 35.8–36.3; O2SAT 90–95
[2020-09-02] MEDS: ALBUTEROL SULFATE NEB 2.5 MG/0.5 ML INH 5 MG INHALATION ×2 (01:47→09:01)
[2020-09-02 05:05] LABS: Hematocrit 52.8 % (42.0-52.0); Mean Corpuscular HGB Conc 32.2 g/dl (32-36); Mean Corpuscular Hemoglobin 32.8 pg (26-34); Mean Corpuscular Volume 101.7 fl (80-100); Mean Platelet Volume 10.8 fl (7.4-10.4); Platelet Count Result 190 k/mm3 (150-375); Red Blood Count 5.19 M/mm3 (4.6-6.20); Red Cell Distribution Width 13.7 % (11.5-14.5); White Blood Count 11.4 K/mm3 (4.5-10.0)
[2020-09-02 05:24] LABS: Alanine Aminotransferase 60 U/L (4-50); Albumin Level 3.5 g/dL (3.5-5.1); Alkaline Phosphatase 101 U/L (38-126); Anion Gap 3.99999 mmol/L (8-16); Aspartate Amino Transferase 28 U/L (17-59); Bilirubin,Total 0.5 mg/dL (0.2-1.3); Blood Urea Nitrogen 16 mg/dL (9-20); Calcium 9.1 mg/dL (8.4-10.2); Carbon Dioxide > 40 mmol/L (22-30); Chloride 91 mmol/L (98-107); Estimated CRCL calculation 193 ml/min; Estimated Glomerular Filt Rate > 60; Glucose 233 mg/dL (75-110); Potassium 4.1 mmol/L (3.4-5.0); Sodium 135 mmol/L (137-145)
[2020-09-02 08:40] LABS: Glucose Point of Care 229 (65-105)
[2020-09-02] MEDS: INSULIN ASPART (*BKC) 100 UNITS/ML SUB-Q ×3 (10:36→17:10)
[2020-09-02] MEDS: ENOXAPARIN 40 MG/0.4 ML SYRINGE SUB-Q (10:39)
[2020-09-02] MEDS: predniSONE 20 MG TABLET 40 MG PO (10:39)
[2020-09-02] MEDS: ATORVASTATIN 40 MG TABLET PO (10:39)
[2020-09-02] MEDS: FAMOTIDINE 20 MG/2 ML VIAL IV PUSH ×2 (10:40→20:27)
[2020-09-02 11:54] LABS: Vancomycin Trough 11.8 ug/mL (10.0-20.0)
--- NOTE | 2020-09-02 12:21 | PM.PNPUL ---
Progress Note: A&P Assessment and Plan (1) COPD (chronic obstructive pulmonary disease): Qualifiers: COPD type: unspecified COPD Qualified Code(s): J44.9 - Chronic obstructive pulmonary disease, unspecified Code(s): J44.9 - Chronic obstructive pulmonary disease, unspecified Status: Acute Assessment and Plan: continue Symibicort and Spiriva as prescribed switch symbicort to home Breo Ellipta once discharged home oxygen assessment prior to discharge. it is very likely that he will need home oxygen (2) MOHSEN (obstructive sleep apnea): Code(s): G47.33 - Obstructive sleep apnea (adult) (pediatric) Status: Acute Assessment and Plan: - increase CPAP to 10 cm H20 - home sleep study order as outpatient (3) Acute on chronic respiratory failure with hypoxia and hypercapnia: Code(s): J96.21 - Acute and chronic respiratory failure with hypoxia; J96.22 - Acute and chronic respiratory failure with hypercapnia Status: Acute Subjective Date/time seen: 09/02/20 12:21 Interval history: Feeling better. Still requiring 8 liters oxygen per nasal cannula Review of Systems Review of Systems: All systems reviewed & are unremarkable except as noted in HPI and below Exam Const: General: comfortable and no acute distress Eyes: General: appearance normal, both eyes and all related structures Neck: Neck: supple and no JVD Resp: Auscultation: wheezes and diminished lung sounds Cardio: Rate: regular rate Rhythm: regular rhythm GI: GI Palp: Yes Soft to palpation Auscultation: normal bowel sounds Skin: General skin exam: normal color Other: RLE cellulitis and chronic venous stasis discoloration Extrem: General: normal to inspection Psych: Mental Status: mental status grossly normal Affect: normal affect Objective Data Vital Signs Vital Signs: Vital Signs - 24 hr 09/01/20 12:45 09/01/20 13:00 09/01/20 13:20 Temperature 36.8 C Pulse Rate 84 75 86 Respiratory Rate 20 20 22 H Blood Pressure 132/67 Pulse Oximetry 90 90 09/01/20 13:35 09/01/20 14:00 09/01/20 16:00 Temperature 36.8 C Pulse Rate 88 81 87 Respiratory Rate 22 H 18 Blood Pressure 136/80 Pulse Oximetry 95 09/01/20 16:30 09/01/20 18:00 09/01/20 19:29 Temperature Pulse Rate 88 84 Respiratory Rate 20 Blood Pressure Pulse Oximetry 92 91 09/01/20 19:33 09/01/20 19:40 09/01/20 19:41 Temperature 36.6 C Pulse Rate 80 88 84 Respiratory Rate 20 20 20 Blood Pressure 123/62 Pulse Oximetry 92 09/01/20 20:00 09/01/20 21:45 09/01/20 22:00 Temperature Pulse Rate 86 85 76 Respiratory Rate 20 Blood Pressure Pulse Oximetry 93 09/01/20 23:37 09/02/20 00:00 09/02/20 01:47 Temperature 36.1 C L Pulse Rate 77 76 78 Respiratory Rate 14 21 H Blood Pressure 128/58 L Pulse Oximetry 92 92 09/02/20 01:49 09/02/20 01:54 09/02/20 02:00 Temperature Pulse Rate 78 70 72 Respiratory Rate 18 21 H Blood Pressure Pulse Oximetry 09/02/20 04:00 09/02/20 06:00 09/02/20 08:00 Temperature 36.3 C L Pulse Rate 69 70 76 Respiratory Rate 17 Blood Pressure 116/55 L Pulse Oximetry 95 09/02/20 09:04 09/02/20 10:00 Temperature 36.0 C L Pulse Rate 82 78 Respiratory Rate 24 H Blood Pressure 135/78 Pulse Oximetry 94 Intake/Output Intake/Output: Intake & Output 08/30/20 08/31/20 09/01/20 09/02/20 23:59 23:59 23:59 23:59 Intake Total 1800 2600 2370 670 Output Total 2250 3400 1350 Balance 1800 603 -9726 -071 Meds/Results Medications: Active Medications Generic Name Dose Route Start Last Admin Trade Name Freq PRN Reason Stop Dose Admin Albuterol 5 mg 09/02/20 12:21 Albuterol Sulf Neb 2.5mg/0.5ml INHALATION Q6HRT PRN Bronchospasm Atorvastatin Calcium 40 mg 09/02/20 09:00 09/02/20 10:39 Lipitor PO 40 mg DAILY [facility] Administration Budesonide/Formoterol Fumarate 2 puff 08/31/20 08:00
[2020-09-02 12:47] LABS: Glucose Point of Care 252 (65-105)
--- NOTE | 2020-09-02 14:55 | PM.IMPN ---
Progress Note: A&P Assessment and Plan (1) Acute metabolic encephalopathy: Code(s): G93.41 - Metabolic encephalopathy Status: Acute Assessment and Plan: 08/31/2020 The patient became more difficult to arouse with a change in his mental status with associated confusion, trouble with his speech. This was secondary to acute respiratory failure with hypercapnia. It improved with BiPAP use. Evaluated for worsening sepsis from cellulitis infection but lactic was normal and cellulitis is improving. He is back to his baseline at this time, A&O x4. Able make decisions on his own. Continue monitoring his mental status specially because he is refusing the BiPAP. Explained to patient the risks of CO2 retention and possibility that he may need to be intubated if his condition becomes worse. He understands the risks and does not want with BiPAP. (2) Acute respiratory failure with hypoxia and hypercapnia: Code(s): J96.01 - Acute respiratory failure with hypoxia; J96.02 - Acute respiratory failure with hypercapnia Status: Acute Assessment and Plan: 08/31/2020 The patient became more difficult to arouse with a change in his mental status with associated confusion, trouble with his speech. Stat ABG was completed which showed he has respiratory acidosis with a pH of 7.273, pCO2 79, HC03 of 35. ABG oxygen saturation was 85% on 3.5 L of oxygen via nasal cannula. He was moved to the IMU and placed on a continuous BiPAP. ABG after wearing BiPAP for about 1 hour did improve his pCO2 to 70 and pH. He was also back to his baseline without any issues. The patient has been refusing BiPAP. He continued to be hypoxic so they had to put him on a high-flow nasal cannula. He still desatted when he would fall asleep showing signs of obstructive sleep apnea and obesity hypoventilation syndrome. CXR showed CHF exacerbation with signs of pulmonary vascular congestion and pulmonary edema. Secondary to the IV fluids he received in the emergency department on arrival but he is not on any IV fluids on the floor. Fluid balance was -1100 cc total this morning. Will not give anymore lasix at this time. Will recheck CXR and ABG in the morning. He is alert and oriented x4, able to make his own decisions in states he will not wear the BiPAP again. Pulmonology is on the case and placed him on a CPAP which he is tolerating more at this time. Continue Prednisone 40 mg daily along with Duoneb treatments Q6hrs. COVID was negative on 08/31/2020. Continue monitoring patient's respiratory status. 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 On arrival he was started on IV Primaxin and vancomycin for the treatment of cellulitis with the patient with diabetes There are line surrounding his erythema and it appears to have improved with IV antibiotics. Blood cultures show no growth at this time. The patient is afebrile, and his white count is normal. Continue monitoring improvement of cellulitis, continue IV antibiotics. (4) Diabetes mellitus, new onset: Code(s): E11.9 - Type 2 diabetes mellitus without complications Status: Acute Assessment and Plan: New onset diabetes with a hemoglobin A1c of 10.1%. Continue on sliding scale insulin as well as Lantus 25 units tonight. Will consult mail list librarian and dietitian for further evaluation Education. Continue monitoring making adjustments to his insulin regimen for better control especially with steroids and underlying infection. Continue monitoring glucose ACHS. Hypoglycemic pro
[2020-09-02 16:36] LABS: Glucose Point of Care 327 (65-105)
[2020-09-02] MEDS: metFORMIN HCL 500 MG TABLET PO (17:16)
[2020-09-02 20:25] LABS: Glucose Point of Care 282 (65-105)
[2020-09-02] MEDS: INSULIN GLARGINE (*BKC) 100 UNITS/ML 25 UNITS SUB-Q (20:29)
[2020-09-03] VITALS (19 sets, daily range): BP systolic 120–149; BP diastolic 65–85; PULSE 66–82; RESP 16–20; TEMP 36.1–36.4; O2SAT 91–99
[2020-09-03 05:32] LABS: Hematocrit 53.3 % (42.0-52.0); Hemoglobin 17.1 g/dL (14.0-18.0); Mean Corpuscular HGB Conc 32.1 g/dl (32-36); Mean Corpuscular Hemoglobin 32.7 pg (26-34); Mean Corpuscular Volume 101.9 fl (80-100); Platelet Count Result 205 k/mm3 (150-375); Red Blood Count 5.23 M/mm3 (4.6-6.20); Red Cell Distribution Width 13.6 % (11.5-14.5); White Blood Count 9.7 K/mm3 (4.5-10.0)
[2020-09-03 05:51] LABS: Anion Gap 5.99999 mmol/L (8-16); Blood Urea Nitrogen 21 mg/dL (9-20); Calcium 9.2 mg/dL (8.4-10.2); Carbon Dioxide > 40 mmol/L (22-30); Chloride 93 mmol/L (98-107); Estimated CRCL calculation 165 ml/min; Estimated Glomerular Filt Rate > 60; Glucose 143 mg/dL (75-110); Potassium 4.1 mmol/L (3.4-5.0); Sodium 139 mmol/L (137-145)
[2020-09-03 06:23] LABS: Alveolar/Arterial O2 Gradient 148.4 mmHg; Base Excess ABG 9.1 mEq/l (+/-2.0); Carboxyhemoglobin 0.3 % THb (0-2.0); Fractional Inspired Oxygen 45 %; HCO3 ABG 39.3 mEq/l (22.0-26.0); Methemoglobin ABG 0.5 %THb (0-1.5); Oxygen Content ABG 23.9 %vol (16.0-22.0); Oxygen Saturation ABG 95.3 % (95.0-100.0); Oxyhemoglobin 94.8 % THb (90.0-100.0); PO2 ABG 85.1 mmHg (80.0-100.0); PO2 FiO2 Ratio Arterial Blood 1.89 %; Reduced Hemoglobin 4.4 %THb (0-5.0); Total Hemoglobin 17.9 g/dL (12.0-18.0); pH ABG 7.327 (7.350-7.450)
[2020-09-03 06:24] LABS: Device NASAL CANNULA; Modified Allen's Test Pass; PCO2 ABG 76.8 mmHg (35.0-45.0); Site Drawn RIGHT RADIAL
[2020-09-03 09:02] LABS: Glucose Point of Care 193 (65-105)
--- NOTE | 2020-09-03 09:27 | PM.IMPN ---
Progress Note: A&P Assessment and Plan (1) Acute metabolic encephalopathy: Code(s): G93.41 - Metabolic encephalopathy Status: Acute Assessment and Plan: 08/31/2020 The patient became more difficult to arouse with a change in his mental status with associated confusion, trouble with his speech. This was secondary to acute respiratory failure with hypercapnia. Evaluated for worsening sepsis from cellulitis infection but lactic was normal and cellulitis is improving. He is back to his baseline at this time, A&O x4. Able make decisions on his own. He is still refusing BiPAP at this time. Continue monitoring his mental status specially because he is refusing the BiPAP. Explained to patient the risks of CO2 retention and possibility that he may need to be intubated if his condition becomes worse. He understands the risks and does not want with BiPAP. (2) Acute respiratory failure with hypoxia and hypercapnia: Code(s): J96.01 - Acute respiratory failure with hypoxia; J96.02 - Acute respiratory failure with hypercapnia Status: Acute Assessment and Plan: 08/31/2020 The patient became more difficult to arouse with a change in his mental status with associated confusion, trouble with his speech. Stat ABG was completed which showed he has respiratory acidosis with a pH of 7.273, pCO2 79, HC03 of 35. ABG oxygen saturation was 85% on 3.5 L of oxygen via nasal cannula. He was moved to the IMU and placed on a continuous BiPAP. ABG after wearing BiPAP for about 1 hour did improve his pCO2 to 70 and pH. He was also back to his baseline without any issues. The patient has been refusing BiPAP. He continued to be hypoxic so they had to put him on a high-flow nasal cannula. He still desatted when he would fall asleep showing signs of obstructive sleep apnea and obesity hypoventilation syndrome. Today CXR showed CHF exacerbation with signs of pulmonary vascular congestion and pulmonary edema. Will give IV Lasix 20 mg once. He is alert and oriented x4, able to make his own decisions in states he will not wear the BiPAP again. Pulmonology is on the case and placed him on a CPAP which he is tolerating more at this time. Continue Prednisone 40 mg daily along with Duoneb treatments Q6hrs. COVID was negative on 08/31/2020. Continue monitoring patient's respiratory status. 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 On arrival he was started on IV Primaxin and vancomycin for the treatment of cellulitis with the patient with diabetes There are line surrounding his erythema and it appears to have improved with IV antibiotics. Blood cultures show no growth at this time. The patient is afebrile, and his white count is normal. Consider PO medications for infection with Bactrim or Doxycycline upon discharge. Continue monitoring improvement of cellulitis, continue IV antibiotics. (4) Diabetes mellitus, new onset: Code(s): E11.9 - Type 2 diabetes mellitus without complications Status: Acute Assessment and Plan: New onset diabetes with a hemoglobin A1c of 10.1%. Continue on sliding scale insulin as well as Lantus 25 units tonight. Will consult consumer educator and dietitian for further evaluation Education. Continue monitoring making adjustments to his insulin regimen for better control especially with steroids and underlying infection. Continue monitoring glucose ACHS. Hypoglycemic protocol in place. Sliding scale insulin initiated. (5) Asthma exacerba
[2020-09-03] MEDS: ENOXAPARIN 40 MG/0.4 ML SYRINGE SUB-Q (10:46)
[2020-09-03] MEDS: predniSONE 20 MG TABLET 40 MG PO (10:46)
[2020-09-03] MEDS: ATORVASTATIN 40 MG TABLET PO (10:47)
[2020-09-03] MEDS: metFORMIN HCL 500 MG TABLET PO ×2 (10:47→16:42)
[2020-09-03] MEDS: FAMOTIDINE 20 MG/2 ML VIAL IV PUSH ×2 (10:47→21:49)
[2020-09-03 12:19] LABS: Glucose Point of Care 222 (65-105)
[2020-09-03] MEDS: INSULIN ASPART (*BKC) 100 UNITS/ML SUB-Q ×2 (13:43→16:42)
[2020-09-03] MEDS: FUROSEMIDE INJ 40 MG/4 ML VIAL 20 MG IV PUSH (16:41)
[2020-09-03 16:56] LABS: Glucose Point of Care 330 (65-105)
--- NOTE | 2020-09-03 17:03 | PM.PNPUL ---
Progress Note: A&P Assessment and Plan (1) COPD (chronic obstructive pulmonary disease): Qualifiers: COPD type: unspecified COPD Qualified Code(s): J44.9 - Chronic obstructive pulmonary disease, unspecified Code(s): J44.9 - Chronic obstructive pulmonary disease, unspecified Status: Acute Assessment and Plan: continue Symibicort and Spiriva as prescribed switch symbicort to home Breo Ellipta once discharged home oxygen assessment prior to discharge. it is very likely that he will need home oxygen (2) MOHSEN (obstructive sleep apnea): Code(s): G47.33 - Obstructive sleep apnea (adult) (pediatric) Status: Acute Assessment and Plan: - home sleep study order as outpatient (3) Acute on chronic respiratory failure with hypoxia and hypercapnia: Code(s): J96.21 - Acute and chronic respiratory failure with hypoxia; J96.22 - Acute and chronic respiratory failure with hypercapnia Status: Acute Assessment and Plan: Will switch to AVAPS tonight due to persistent hypercapnia. Did not tolerate BIPAP and CPAP 10 cm was not effective. Orders have been placed. Subjective Date/time seen: 09/03/20 17:03 Interval history: Feeling better, Still mildly hypercapnic on ABG this morning despite overnight CPAP of 10 cm. He did not tolerate BIPAP even at mild doses. He is downt to 6 liters by nasal cannula Review of Systems Review of Systems: All systems reviewed & are unremarkable except as noted in HPI and below Exam Const: General: comfortable and no acute distress Eyes: General: appearance normal, both eyes and all related structures Neck: Neck: supple and no JVD Resp: Auscultation: wheezes and diminished lung sounds Cardio: Rate: regular rate Rhythm: regular rhythm GI: GI Palp: Yes Soft to palpation Auscultation: normal bowel sounds Skin: General skin exam: normal color Other: RLE cellulitis and chronic venous stasis discoloration Extrem: General: normal to inspection Psych: Mental Status: mental status grossly normal Affect: normal affect Objective Data Vital Signs Vital Signs: Vital Signs - 24 hr 09/02/20 18:00 09/02/20 19:51 09/02/20 20:00 Temperature 36.1 C L Pulse Rate 83 81 82 Respiratory Rate 20 Blood Pressure 133/66 Pulse Oximetry 90 09/02/20 22:00 09/02/20 23:38 09/03/20 00:00 Temperature 36.2 C L Pulse Rate 80 74 73 Respiratory Rate 20 Blood Pressure 133/71 Pulse Oximetry 92 95 09/03/20 02:00 09/03/20 03:57 09/03/20 04:00 Temperature 36.2 C L Pulse Rate 71 66 76 Respiratory Rate 18 Blood Pressure 149/85 H Pulse Oximetry 95 09/03/20 05:32 09/03/20 06:00 09/03/20 07:52 Temperature 36.1 C L Pulse Rate 72 75 Respiratory Rate 16 Blood Pressure 149/75 H Pulse Oximetry 96 94 09/03/20 08:00 09/03/20 09:55 09/03/20 10:00 Temperature Pulse Rate 76 80 Respiratory Rate Blood Pressure Pulse Oximetry 91 09/03/20 12:00 09/03/20 12:08 09/03/20 14:00 Temperature 36.2 C L Pulse Rate 72 74 75 Respiratory Rate 16 Blood Pressure 123/67 Pulse Oximetry 94 09/03/20 16:32 Temperature 36.4 C Pulse Rate 76 Respiratory Rate 20 Blood Pressure 120/68 Pulse Oximetry 91 Intake/Output Intake/Output: Intake & Output 08/31/20 09/01/20 09/02/20 09/03/20 23:59 23:59 23:59 23:59 Intake Total 2600 2370 3570 1680 Output Total 2250 3400 0620 9734 Balance 266 -0198 -905 -84 Meds/Results Medications: Active Medications Generic Name Dose Route Start Last Admin Trade Name Freq PRN Reason Stop Dose Admin Albuterol 2.5 mg 09/03/20 06:47 Albuterol Sulf Neb 2.5mg/0.5ml INHALATION Q6HRT PRN Bronchospasm Atorvastatin Calcium 40 mg 09/02/20 09:00 09/03/20 10:47 Lipitor PO 40 mg DAILY MAGDY Administration Budesonide/Formoterol Fumarate 2 puff 08/31/20 08:00 09/03/20 09:54 Symbicort 160-4.5 Mcg (*Sp) Inhaler INHALATION 2 puff Q12HRT SC
--- NOTE | 2020-09-03 17:54 | PC.NURSE ---
This patient, Haja Arroyo, was transferred to [facility] on 09/03/20 at 1753. Personal belongings sent with patient. Report given to Giovanny. Appropriate documentation sent with patient.
--- NOTE | 2020-09-03 17:59 | PC.NURSE ---
This patient, Haja Arroyo, was received from [id number] on 09/03/20 at 1750. Personal belongings list checked and signed. Patient/family oriented to unit policies and routines
[2020-09-03 21:17] LABS: Glucose Point of Care 196 (65-105)
[2020-09-03] MEDS: INSULIN GLARGINE (*BKC) 100 UNITS/ML 25 UNITS SUB-Q (21:55)
[2020-09-04] VITALS (20 sets, daily range): BP systolic 116–148; BP diastolic 53–70; PULSE 65–92; RESP 2–20; TEMP 36.1–37; O2SAT 86–99; BMI 46.6
[2020-09-04 06:25] LABS: Hematocrit 56.8 % (42.0-52.0); Hemoglobin 18.1 g/dL (14.0-18.0); Mean Corpuscular HGB Conc 31.9 g/dl (32-36); Mean Corpuscular Hemoglobin 32.7 pg (26-34); Mean Corpuscular Volume 102.7 fl (80-100); Platelet Count Result 203 k/mm3 (150-375); Red Blood Count 5.53 M/mm3 (4.6-6.20); Red Cell Distribution Width 13.4 % (11.5-14.5); White Blood Count 9.4 K/mm3 (4.5-10.0)
[2020-09-04 06:45] LABS: Anion Gap 8.99999 mmol/L (8-16); Blood Urea Nitrogen 19 mg/dL (9-20); Calcium 9.3 mg/dL (8.4-10.2); Carbon Dioxide > 40 mmol/L (22-30); Chloride 89 mmol/L (98-107); Estimated CRCL calculation 165 ml/min; Estimated Glomerular Filt Rate > 60; Glucose 200 mg/dL (75-110); Potassium 3.9 mmol/L (3.4-5.0); Sodium 138 mmol/L (137-145)
--- NOTE | 2020-09-04 07:00 | PC.NURSE ---
Outpatient referral started for Initial DSMT and MNT. [facility] and to Dr. Ness.
[2020-09-04 07:23] LABS: Hepatitis B Core Ab Total Nonreactive (Nonreactive)
[2020-09-04] MEDS: FAMOTIDINE 20 MG/2 ML VIAL IV PUSH ×2 (08:25→22:14)
[2020-09-04] MEDS: ATORVASTATIN 40 MG TABLET PO (08:25)
[2020-09-04] MEDS: metFORMIN HCL 500 MG TABLET PO ×2 (08:25→16:00)
[2020-09-04] MEDS: predniSONE 20 MG TABLET 40 MG PO (08:25)
[2020-09-04] MEDS: ENOXAPARIN 40 MG/0.4 ML SYRINGE SUB-Q (08:32)
[2020-09-04 09:19] LABS: Glucose Point of Care 175 (65-105)
--- NOTE | 2020-09-04 11:02 | PM.PNPUL ---
Progress Note: A&P Assessment and Plan (1) Acute on chronic respiratory failure with hypoxia and hypercapnia: Code(s): J96.21 - Acute and chronic respiratory failure with hypoxia; J96.22 - Acute and chronic respiratory failure with hypercapnia Status: Acute Assessment and Plan: He is willing to try the Trilogy at home, and this will mean that he will not require a sleep test after discharge. Did not tolerate BIPAP well, and did not have benefit from CPAP 10 cm. This patient would benefit from NPPV for chronic hypercapnic respiratory failure due to COPD. He has been on CPAP as well as BiPAP and these have failed to normalize his CO2 retention. Since he has failed these treatments, he requires noninvasive positive pressure with all night time sleep as in the day as needed for shortness of breath. If this can be arranged he may be able to go home today. d/w GREG Peoples (2) Asthma-COPD overlap syndrome: Code(s): J44.9 - Chronic obstructive pulmonary disease, unspecified Status: Acute Assessment and Plan: His admission appears more compatible with a COPD exacerbation, however he has had asthma for years with exacerbations. continue Symibicort and Spiriva as prescribed switch symbicort to home Breo Ellipta once discharged home oxygen assessment prior to discharge. it is very likely that he will need home oxygen We will plan for him to have PFTs 6-8 weeks after discharge, or when he is back to his baseline. Last PFT Jan 2015 showed restriction, severe obstruction, moderate decrease in DLCO and no response to bronchodilator. Subjective Date/time seen: 09/04/20 11:02 This 50 yo man is seen in follow up for COPD/asthma with exacerbation and acute on chronic hypercapnic hypoxemic respiratory failure. He was not able to tolerate BiPAP, and did not tolerate AVAPS after he woke up. The pressure was too much for him to tolerate. Review of Systems Review of Systems: All systems reviewed & are unremarkable except as noted in HPI and below Exam Const: General: comfortable and no acute distress Eyes: General: appearance normal, both eyes and all related structures Neck: Neck: supple and no JVD Resp: Auscultation: wheezes and diminished lung sounds Cardio: Rate: regular rate Rhythm: regular rhythm GI: Auscultation: normal bowel sounds Skin: General skin exam: normal color Other: improved status of his RLE cellulitis and chronic venous stasis discoloration Extrem: General: normal to inspection Psych: Mental Status: mental status grossly normal Affect: normal affect Objective Data Vital Signs Vital Signs: Vital Signs - 24 hr 09/03/20 12:00 09/03/20 12:08 09/03/20 14:00 Temperature 36.2 C L Pulse Rate 72 74 75 Respiratory Rate 16 Blood Pressure 123/67 Pulse Oximetry 94 09/03/20 16:00 09/03/20 16:32 09/03/20 18:16 Temperature 36.4 C 36.3 C L Pulse Rate 82 76 80 Respiratory Rate 20 20 Blood Pressure 120/68 136/76 Pulse Oximetry 91 93 09/03/20 19:46 09/03/20 20:00 09/03/20 21:46 Temperature 36.4 C Pulse Rate 76 76 81 Respiratory Rate 18 20 Blood Pressure 139/65 Pulse Oximetry 94 99 96 09/04/20 00:00 09/04/20 00:29 09/04/20 02:00 Temperature 37.0 C Pulse Rate 88 71 90 Respiratory Rate 20 20 Blood Pressure 128/67 Pulse Oximetry 96 99 09/04/20 02:35 09/04/20 04:00 09/04/20 06:00 Temperature 36.4 C L Pulse Rate 81 65 69 Respiratory Rate 20 Blood Pressure 127/70 Pulse Oximetry 97 94 09/04/20 08:20 09/04/20 09:11 Temperature Pulse Rate Respiratory Rate Blood Pressure Pulse Oximetry 99 91 Intake/Output Intake/Output: Intake & Output 09/01/20 09/02/20 09/03/20 09/04/20 23:59 23:59 23:59 23:59 Intake Total 2370 3570 3420 1290 Output Total 3400 9815 3300 1600 Balance -1030 -
[2020-09-04] MEDS: INSULIN ASPART (*BKC) 100 UNITS/ML SUB-Q ×2 (12:43→17:58)
[2020-09-04 12:51] LABS: Glucose Point of Care 224 (65-105)
--- NOTE | 2020-09-04 16:41 | HOMEO2EVAL ---
Home Oxygen Evaluation RC: Home Oxygen (O2) Evaluation Start: 09/04/20 08:37 Freq: ONCE Status: Active Protocol: RPE Activity Type Activity Date Activity User E-Sign Co-Sign Detail Recorded Client Recorded Date Recorded By Document 09/04/20 11:00 [email or web address] 09/04/20 16:40 VAN Document 09/04/20 11:03 [email or web address] 09/04/20 16:40 VAN Document 09/04/20 11:05 [email or web address] 09/04/20 16:40 VAN Document 09/04/20 11:10 [email or web address] 09/04/20 16:40 VAN Document 09/04/20 11:20 [email or web address] 09/04/20 16:40 VAN 09/04/20 09/04/20 09/04/20 11:00 11:03 11:05 Home O2 Evaluation Test Phase Resting Resting Resting Oxygen Delivery Room Air Nasal Cannula Nasal Cannula Oxygen Flow Rate (L/min) 1 2 Pulse Oximetry (90-100 %) 86 L 87 L 91 Activity Tolerance Home Oxygen Evaluation Comments Treatment Charges O2 Evaluation 09/04/20 09/04/20 11:10 11:20 Home O2 Evaluation Test Phase Exercise Resting Oxygen Delivery Nasal Cannula Nasal Cannula Oxygen Flow Rate (L/min) 2 2 Pulse Oximetry (90-100 %) 93 93 Activity Tolerance Fair Home Oxygen Evaluation Comments PT REQUIRES 2 L AT REST AND WITH EXERTION Treatment Charges
--- NOTE | 2020-09-04 16:45 | PCRCNOTE ---
ALL PAPERWORK FOR TRILOGY AND HOME O2 HAS BEEN SUBMITTED TO [employer]. THEY WILL SUBMIT TO INSURANCE FOR APPROVAL AND LET US KNOW EDA.
--- NOTE | 2020-09-04 16:56 | PM.IMPN ---
Progress Note: A&P Assessment and Plan (1) Acute metabolic encephalopathy: Code(s): G93.41 - Metabolic encephalopathy Status: Acute Assessment and Plan: 08/31/2020 The patient became more difficult to arouse with a change in his mental status with associated confusion, trouble with his speech. This was secondary to acute respiratory failure with hypercapnia. Evaluated for worsening sepsis from cellulitis infection but lactic was normal and cellulitis is improving. He is back to his baseline at this time, A&O x4. Able make decisions on his own. He is still refusing BiPAP/AVAPS at this time He will be discharged on Trilogy to help with preventing hypercapnia respiratory failure. Continue monitoring his mental status specially because he is refusing the BiPAP. Explained to patient the risks of CO2 retention and possibility that he may need to be intubated if his condition becomes worse. He understands the risks and does not want with BiPAP. (2) Acute respiratory failure with hypoxia and hypercapnia: Code(s): J96.01 - Acute respiratory failure with hypoxia; J96.02 - Acute respiratory failure with hypercapnia Status: Acute Assessment and Plan: 08/31/2020 The patient became more difficult to arouse with a change in his mental status with associated confusion, trouble with his speech. Stat ABG was completed which showed he has respiratory acidosis with a pH of 7.273, pCO2 79, HC03 of 35. ABG oxygen saturation was 85% on 3.5 L of oxygen via nasal cannula. He was moved to the IMU and placed on a continuous BiPAP. ABG after wearing BiPAP for about 1 hour did improve his pCO2 to 70 and pH. He was also back to his baseline without any issues. The patient has been refusing BiPAP. He continued to be hypoxic and is now on 2L via NC. He still desatted when he would fall asleep showing signs of obstructive sleep apnea and obesity hypoventilation syndrome. Yesterday, CXR showed CHF exacerbation with signs of pulmonary vascular congestion and pulmonary edema. I gave IV Lasix 20 mg and he had -1230 and he is euvolemic at this time. He is alert and oriented x4, able to make his own decisions. Pulmonology is on the case and feels comfortable with him being discharged on 2 L via nasal cannula and a trilogy machine due to hypercapnic respiratory failure and MOHSEN. Will be discharged home on a prednisone taper Prednisone 40 mg daily and Breo/Spiriva COVID was negative on 08/31/2020. We are pending his insurance authorization for oxygen and trilogy at this time. Continue monitoring patient's respiratory status. Appreciate respiratory's assistance (3) Cellulitis: Code(s): L03.90 - Cellulitis, unspecified Status: Acute Assessment and Plan: Patient has been dealing with right leg cellulitis up to his stomach for 4 days [employer] and has failed outpatient treatment with clindamycin (2 days) and Bactrim (5 days). On arrival he was started on IV Primaxin and vancomycin for the treatment of cellulitis with the patient with diabetes There are line surrounding his erythema and it appears to have improved with IV antibiotics. Blood cultures show no growth at this time. The patient is afebrile, and his white count is normal. Consider PO medications for infection with Bactrim upon discharge. Continue monitoring improvement of cellulitis, continue IV antibiotics. (4) Diabetes mellitus, new onset: Code(s): E11.9 - Type 2 diabetes mellitus without complications Status: Acute Assessment and Plan: New onset diabetes with a hemoglobin A1c of 10.1%. Continue on sliding scale insulin as well as Lantus 25 units tonight. Will consult metal bumper and dietitian for further evaluation Education. Continue monitoring making adjustments to his insulin regimen for bet
[2020-09-04 20:33] LABS: Glucose Point of Care 331 (65-105)
[2020-09-04] MEDS: INSULIN GLARGINE (*BKC) 100 UNITS/ML 25 UNITS SUB-Q (22:05)
[2020-09-05] VITALS: PULSE 74; RESP 28; O2SAT 94
[2020-09-05 02:00] VITALS: BP 148/71; PULSE 63; RESP 17; RESP 20; TEMP 36.4; O2SAT 96
[2020-09-05 04:53] LABS: Glucose Point of Care 383 (65-105)
[2020-09-05 05:51] LABS: Hematocrit 53.7 % (42.0-52.0); Hemoglobin 17.3 g/dL (14.0-18.0); Mean Corpuscular HGB Conc 32.2 g/dl (32-36); Mean Corpuscular Hemoglobin 31.8 pg (26-34); Mean Corpuscular Volume 98.7 fl (80-100); Mean Platelet Volume 10.4 fl (7.4-10.4); Platelet Count Result 203 k/mm3 (150-375); Red Blood Count 5.44 M/mm3 (4.6-6.20); Red Cell Distribution Width 13.2 % (11.5-14.5); White Blood Count 9.6 K/mm3 (4.5-10.0)
[2020-09-05 06:00] VITALS: BP 136/63; PULSE 68; RESP 18; TEMP 36.4; O2SAT 93
[2020-09-05 06:18] LABS: Anion Gap 3.99999 mmol/L (8-16); Blood Urea Nitrogen 17 mg/dL (9-20); Calcium 8.9 mg/dL (8.4-10.2); Carbon Dioxide > 40 mmol/L (22-30); Chloride 93 mmol/L (98-107); Estimated CRCL calculation 165 ml/min; Estimated Glomerular Filt Rate > 60; Glucose 170 mg/dL (75-110); Potassium 3.8 mmol/L (3.4-5.0); Sodium 137 mmol/L (137-145)
[2020-09-05 07:58] VITALS: PULSE 76; RESP 18; O2SAT 94
[2020-09-05] MEDS: ENOXAPARIN 40 MG/0.4 ML SYRINGE SUB-Q (08:12)
[2020-09-05] MEDS: ATORVASTATIN 40 MG TABLET PO (08:12)
[2020-09-05] MEDS: metFORMIN HCL 500 MG TABLET PO (08:12)
[2020-09-05] MEDS: FAMOTIDINE 20 MG/2 ML VIAL IV PUSH (08:12)
[2020-09-05 08:17] LABS: Glucose Point of Care 169 (65-105)
[2020-09-05 11:59] LABS: Glucose Point of Care 181 (65-105)
[2020-09-05 12:20] LABS: Vancomycin Trough 10.9 ug/mL (10.0-20.0)
[2020-09-05 12:30] VITALS: BP 124/62; PULSE 69; RESP 20; TEMP 36.4; O2SAT 94
--- NOTE | 2020-09-05 12:55 | PCRCNOTE ---
PT HOME O2 HAS BEEN APPROVED, BUT THE PATIENT TRILOGY UNIT HAS NOT. IT IS POSSIBLE THAT IT MAY TAKE A FEW DAYS TO RECEIVE APPROVAL FOR THE TRILOGY UNIT FROM [facility]. I LEFT MESSAGE WITH DR ECHAVARRIA, AWAITING RESPONSE TO NEXT STEP...GO HOME WITHOUT TRILOGY UNIT AND JUST O2, OR WAIT FOR APPROVAL OF TRILOGY AND ARRANGE IT ALL AT ONCE PRIOR TO DISCHARGE.
--- NOTE | 2020-09-05 16:18 | PM.DS ---
DS: Admitting Diagnosis Admitting Diagnosis Admitting Diagnosis: Cellulitis, hypoxemia, hyperglycemia, COPD DS: Discharge Diagnosis Discharge Diagnosis (1) Acute respiratory failure with hypoxia and hypercapnia: Code(s): J96.01 - Acute respiratory failure with hypoxia; J96.02 - Acute respiratory failure with hypercapnia Status: Acute Assessment and Plan: Hospital Discharge Summary (Date of service 09/05/20): Mr. Arroyo is a 50 y.o. male with PMH significant for Asthma-COPD overlap syndrome, morbid obesity, chronic venous insufficiency, and tobacco dependence who presented to the emergency department for the evaluation of cellulitis of the right lower extremity. At presentation to the emergency department, he was noted to be hypoxic with oxygen saturation of 82% and placed on 4 liters per nasal cannula. The patient reported to the emergency department provider that his oxygen saturations were typically in the 80s at home and he admitted to me that he was smoking 1-1.5PPD prior to admission. Initial workup in the emergency department was notable for CXR with mild atelectasis, chest CTA with no evidence of pulmonary embolism. Labs were notable for CO2 of 38, chloride 95, glucose 276. LFTs were elevated with AST 62, ALT 102, ALP 128. Bilirubin was normal. BNP was 108. ABG demonstrated CO2 retention with compensation. He refused treatment for his COPD symptoms in the emergency department. He was admitted to the hospitalist service for IV antibiotic therapy for his cellulitis. On , the patient developed altered mental status with confusion. ABG demonstrated acute respiratory failure with hypercapnia. He was transferred to the IMU and placed on continuous BiPAP with improvement. He initially refused his BiPAP intermittently but eventually agreed to trilogy and did very well with this. His mental status resolved with improvement in hypercapnia and he returned to baseline. The risks of CO2 retention including intubation and were discussed with the patient and he verbalized understanding. Pulmonology was consulted and recommended prednisone taper, Breo, and Spiriva. Home oxygen evaluation was performed and he qualified for 2 liters of oxygen per nasal cannula and pulmonology was comfortable with his discharge. Acute on chronic hypoxic and hypercapnic respiratory failure was felt to be multifactorial including obesity hypoventilation syndrome, obstructive sleep apnea, COPD, asthma, and tobacco abuse. He will need outpatient pulmonary function testing and close pulmonology follow-up outpatient. COVID-19 testing was performed and negative. I discussed the importance of smoking cessation and weight loss with the patient at length. He was also found to have type 2 diabetes mellitus with hyperglycemia and HbA1c 10.1%. He was discharged on lantus and metformin and met with diabetes education to discuss further management including monitoring blood sugars, carb counting, and hypoglycemia. He was discharged in stable condition on the afternoon of 09/05/20. (2) Acute metabolic encephalopathy: Code(s): G93.41 - Metabolic encephalopathy Status: Acute Assessment and Plan: On , the patient developed altered mental status with confusion. ABG demonstrated acute respiratory failure with hypercapnia. He was transferred to the IMU and placed on continuous BiPAP with improvement. He initially refused his BiPAP intermittently but eventually agreed to trilogy and did very well with this. His mental status resolved with improvement in hypercapnia and he returned to baseline. The risks of CO2 retention including intubation and were discussed with the patient and he verbalized understanding. (3) Cellulitis: Code(s): L03.90 - Cellulitis, unspecified Status: Acute Assessment and Plan: He was treated for right leg cellulitis extending to the abdomen prior to admission and failed outpatient treatment with clindamycin
== END 2020-09-05 17:18 | disposition home or self-care (01) | DRG 602 ==
LOC: ANHED 17:42 → ANH2MED 08-31 07:08 → ANHIMU 08-31 13:34 → ANH3MEDSUR 09-04 09:38 → ANH2MED 09-07 12:19 → ANH3MEDSUR 09-07 12:19 → ANHIMU 09-07 12:19
PROVIDERS: Emergency Medicine Emergency Medical Services; Internal Medicine Critical Care Medicine; Nurse Practitioner; Physician Assistant; Admitting Provider Internal Medicine; Emergency Provider Emergency Medicine; PCP Family Medicine; Visit Provider Physician Assistant
DX: L03.115 Cellulitis of right lower limb (principal); G93.41 Metabolic encephalopathy; I50.31 Acute diastolic (congestive) heart failure; J96.21 Acute and chronic respiratory failure with hypoxia; J96.22 Acute and chronic respiratory failure with hypercapnia; J45.901 Unspecified asthma with (acute) exacerbation; Z68.42 Body mass index [BMI] 45.0-49.9, adult; Z20.828 Contact with and (suspected) exposure to other viral communicable diseases; J44.9 Chronic obstructive pulmonary disease, unspecified; E11.65 Type 2 diabetes mellitus with hyperglycemia; E11.51 Type 2 diabetes mellitus with diabetic peripheral angiopathy without gangrene; I73.9 Peripheral vascular disease, unspecified; R79.89 Other specified abnormal findings of blood chemistry; F17.210 Nicotine dependence, cigarettes, uncomplicated; E78.5 Hyperlipidemia, unspecified; I87.2 Venous insufficiency (chronic) (peripheral); E66.01 Morbid (severe) obesity due to excess calories; G47.33 Obstructive sleep apnea (adult) (pediatric)
CPT/HCPCS: 36415; 36600; 71045; 71046; 71275; 74183; 76705; 80048; 80053; 80061; 80076; 80202; 82104; 82375; 82565; 82607; 82728; 82746; 82805; 83036; 83050; 83540; 83550; 83605; 83735; 83880; 84443; 85025; 85027; 85610; 85730; 86038; 86039; 86140; 86704; 86706; 86709; 86803; 87040; 87340; 87635; 93005; 94002; 94003; 94618; 94640; 96365; 96366; 96375; 99285; A9270; A9577; C8929; C9803; J0131; J0743; J1650; J1815; J1940; J2930; J3370; J7030; J7060; J7120; J7512; Q9957; Q9967; U0003

== ENCOUNTER 2020-12-28 09:18 | Outpatient (RCR) | payer OTHER, SELFPAY | END 2021-03-05 15:41 | disposition home or self-care (01) | LOC: ANHDMC 09:18 | PROVIDERS: PCP Family Medicine; Visit Provider Family Medicine | DX: E11.65 Type 2 diabetes mellitus with hyperglycemia (principal); Z71.89 Other specified counseling | CPT/HCPCS: G0108 ==

== ENCOUNTER 2021-03-23 08:36 | Outpatient (CLI) | payer OTHER, SELFPAY ==
[2021-03-23 09:21] LABS: Alveolar/Arterial O2 Gradient 17.5 mmHg; Carboxyhemoglobin 6.4 % THb (0-2.0); Fractional Inspired Oxygen 21 %; HCO3 ABG 29.6 mEq/l (22.0-26.0); Methemoglobin ABG 0.1 %THb (0-1.5); Oxygen Content ABG 20.2 %vol (16.0-22.0); Oxygen Saturation ABG 90.4 % (95.0-100.0); Oxyhemoglobin 85.6 % THb (90.0-100.0); PCO2 ABG 57.4 mmHg (35.0-45.0); PO2 ABG 63.5 mmHg (80.0-100.0); PO2 FiO2 Ratio Arterial Blood 3.02 %; Reduced Hemoglobin 7.9 %THb (0-5.0); Total Hemoglobin 16.8 g/dL (12.0-18.0)
[2021-03-23 09:22] LABS: Device ROOM AIR; Modified Allen's Test Pass; Site Drawn LEFT RADIAL
[2021-03-23 10:00] VITALS: PULSE 92; O2SAT 93
[2021-03-23 10:05] VITALS: PULSE 103; O2SAT 90
[2021-03-23 10:15] VITALS: PULSE 93; O2SAT 93
--- NOTE | 2021-03-23 12:04 | WPDPFTINT ---
PFT Interpretation This PFT met all criteria for ATS standards and reproducibility FEV/FVC post bronchodilator 61% FEV1 36% or 1.44 liters FVC 46% TLC 69% RV 117% RV/TLC 50% DLCO 62% when adjusted for alveolar volume but not adjusted for hemoglobin Flow volume loops showed significant expiratory coving Impression: Severe obstructive ventilatory defect is present with mildly reduced diffusion capacity. A restrictive ventilatory defect is also present which may be due to obesity but ILD or other conditions cannot be ruled out. Clinical correlation is advised. PFT Procedure Performed PFT Procedure Performed Spirometry with Pre/Post Bronchodilator Plethysmography (Lung Vol) Diffusing Cap (DLCO) Flow Vol Loop
--- NOTE | 2021-09-19 09:23 | HOMEO2EVAL ---
Evaluation was performed at [facility]
== END 2021-03-23 08:37 | disposition home or self-care (01) ==
LOC: ANHPFT 08:43
PROVIDERS: PCP Family Medicine; Visit Provider Nurse Practitioner Family
DX: J96.10 Chronic respiratory failure, unspecified whether with hypoxia or hypercapnia (principal); J44.9 Chronic obstructive pulmonary disease, unspecified; R94.2 Abnormal results of pulmonary function studies
CPT/HCPCS: 36600; 82375; 82805; 83050; 94060; 94618; 94726; 94729

== ENCOUNTER 2022-03-08 08:49 | Outpatient (CLI) | payer OTHER, SELFPAY ==
--- NOTE | ~2022-03-08 | US_ITS ---
EXAMINATION: US art doppler w press LE BI DATE: 03/08/2022 11:30 INDICATION: Disorder of pigmentation, unspecified. TECHNIQUE: Segmental pressures and plethysmographic and Doppler waveforms of the brachial and lower e xtremity arteries were obtained. COMPARISON: None. FINDINGS: Right and left brachial artery pressures of 120 mm Hg and 137 mm Hg, respectively, are concordant (no rmal difference <= 30 mmHg). The right thigh pressure could not be measured due to inability to cuff occlude the arteries. The rig ht ankle-brachial index (DANNY) is 1.07 (normal >= 0.9-1.0). The right great toe-brachial index (TBI) i s 0.78 (normal >= 0.65). The right lower extremity segmental pressure gradients are normal (normal gr adients <= 20-30 mmHg between adjacent levels on the same leg or the same levels on the two legs). Ar terial Doppler waveforms are at least triphasic in common femoral artery and biphasic from superficia l femoral artery to the ankle. The left thigh pressure could not be measured due to inability to cuff occlude the arteries. The left DANNY is 0.98. The left TBI is 0.80. Arterial Doppler waveforms are biphasic from common femoral arter y to the ankle. IMPRESSION: 1. No significant arterial occlusive disease. Reviewed, dictated and finalized at location A.
--- NOTE | ~2022-03-08 | US_ITS ---
EXAMINATION: US venous doppler [facility] DATE: 03/08/2022 11:29 INDICATION: Localized lower limb edema. TECHNIQUE: Grayscale ultrasound images without and with compression and Doppler ultrasound images of the bilateral lower extremity veins were obtained. COMPARISON: Ultrasound 08/25/2020 FINDINGS: The visualized portions of right common femoral vein, profunda (deep) femoral vein, femoral vein, pop liteal vein, peroneal veins, posterior tibial veins, and greater saphenous vein outflow are patent. The visualized portions of left common femoral vein, profunda femoral vein, femoral vein, popliteal v ein, peroneal veins, posterior tibial veins, and greater saphenous vein outflow are patent. IMPRESSION: 1. No deep venous thrombosis. Reviewed, dictated and finalized at location A.
== END 2022-03-08 08:50 | disposition home or self-care (01) ==
LOC: ANHIMG 08:54
PROVIDERS: PCP Family Medicine; Visit Provider Nurse Practitioner Family
DX: I87.2 Venous insufficiency (chronic) (peripheral) (principal); L81.9 Disorder of pigmentation, unspecified; R60.0 Localized edema
CPT/HCPCS: 93923; 93970

== ENCOUNTER → 2022-04-27 07:24 | Outpatient (CLI) | payer OTHER, SELFPAY ==
--- NOTE | ~2022-04-27 | US_ITS ---
US scrotum doppler DATE: 04/27/2022 08:10 INDICATION: Swelling of left scrotum for 2 months. No known injury. TECHNIQUE: Real-time and color flow imaging and Doppler analysis of the scrotal contents COMPARISON: None FINDINGS: Prominent bilateral hydroceles. No testicular mass lesion or torsion is evident. Right testicle measures 4.6 x 2.9 x 3.0 cm. Left ban ticle measures 4.7 x 2.8 x 3.1 cm. Symmetric homogeneous echotexture of the testicles. The epididymis is unremarkable bilaterally. IMPRESSION: Prominent bilateral hydroceles No testicular mass lesion or torsion is detected Reviewed, dictated and finalized at Location A. Reviewed, dictated and finalized at location A.
== END ==
PROVIDERS: PCP Family Medicine; Visit Provider Family Medicine
DX: N50.89 Other specified disorders of the male genital organs (principal); N43.3 Hydrocele, unspecified
CPT/HCPCS: 76870; 93976

== ENCOUNTER 2023-09-08 14:20 | Outpatient (CLI) | payer OTHER, SELFPAY ==
[2023-09-08 15:01] LABS: Basophils Percent Auto 0.4 % (0.2-1.2); Eosinophils Absolute Auto 0.1 K/mm3 (0-0.3); Eosinophils Percent Auto 1.2 % (0-4.4); Hematocrit 56.9 % (42.0-52.0); Hemoglobin 17.8 g/dL (14.0-18.0); Immature Granulocyte Absolute 0.04 K/mm3 (0.00-0.031); Immature Granulocyte Percent A 0.4 % (0-0.5); Lymphocytes Absolute Auto 2.19 K/mm3 (0.9-3.2); Lymphocytes Percent Auto 23.7 % (18.3-44.2); Mean Corpuscular HGB Conc 31.3 g/dl (32-36); Mean Corpuscular Hemoglobin 31.8 pg (26-34); Mean Corpuscular Volume 101.6 fl (80-100); Mean Platelet Volume 10.2 fl (7.4-10.4); Monocytes Absolute Auto 0.9 K/mm3 (0.1-0.6); Monocytes Percent Auto 9.6 % (2.6-8.5); Neutrophils Percent Auto 64.7 % (45.5-73.1); Platelet Count Result 215 k/mm3 (150-375); Red Cell Distribution Width 14.4 % (11.5-14.5); White Blood Count 9.2 K/mm3 (4.5-10.0)
[2023-09-08 15:21] LABS: Alanine Aminotransferase 47 U/L (6-50); Albumin Level 4.1 g/dL (3.5-5.1); Alkaline Phosphatase 98 U/L (38-126); Anion Gap 5 mmol/L (8-16); Aspartate Amino Transferase 28 U/L (17-59); Bilirubin,Total 0.5 mg/dL (0.2-1.3); Blood Urea Nitrogen 15 mg/dL (9-20); Carbon Dioxide 34 mmol/L (22-30); Chloride 101 mmol/L (98-107); Estimated Glomerular Filt Rate > 60; Glucose 121 mg/dL (65-110); Potassium 4.5 mmol/L (3.4-5.0); Sodium 140 mmol/L (137-145)
[2023-09-08 16:13] LABS: NT Pro B Type Natriuretic Pept 106 pg/mL (19.9-100)
== END 2023-09-08 14:21 | disposition home or self-care (01) ==
PROVIDERS: PCP Family Medicine; Visit Provider Physician Assistant Medical
DX: R60.0 Localized edema (principal); I27.20 Pulmonary hypertension, unspecified; I87.2 Venous insufficiency (chronic) (peripheral); I50.30 Unspecified diastolic (congestive) heart failure; E11.9 Type 2 diabetes mellitus without complications
CPT/HCPCS: 36415; 80053; 82607; 83036; 83880; 85025

== ENCOUNTER 2024-06-10 10:51 | Outpatient (CLI) | payer OTHER, SELFPAY ==
[2024-06-10] VITALS (7 sets, daily range): PULSE 81–101; O2SAT 85–92
--- NOTE | 2024-06-10 11:50 | HOMEO2EVAL ---
Evaluation was performed at [facility] Home Oxygen Evaluation RC: Home Oxygen (O2) Evaluation Start: 06/10/24 11:41 Freq: Status: Active Protocol: RPE Activity Type Activity Date Activity User E-sign Co-sign Detail Recorded Client Recorded Date Recorded By Document 06/10/24 11:00 [email or web address] 06/10/24 11:50 VAN Document 06/10/24 11:05 [email or web address] 06/10/24 11:50 VAN Document 06/10/24 11:07 [email or web address] 06/10/24 11:50 VAN Document 06/10/24 11:15 [email or web address] 06/10/24 11:50 VAN Document 06/10/24 11:16 [email or web address] 06/10/24 11:50 VAN Document 06/10/24 11:17 [email or web address] 06/10/24 11:50 VAN Document 06/10/24 11:30 [email or web address] 06/10/24 11:50 VAN 06/10/24 06/10/24 06/10/24 11:00 11:05 11:07 Home O2 Evaluation [Oxygen] -Test Phase Resting Resting Resting -Oxygen Delivery Room Air Nasal Cannula Nasal Cannula -Oxygen Flow Rate (L/min) 1 2 [Pulse Oximetry] -Pulse Oximetry (90-100 %) 85 L 87 L 92 [Pulse Rate] -Pulse Rate (60-100 beats/min) 81 [Comments] -Home Oxygen Evaluation Comments [Charges] -Evaluation Charges O2 Evaluation by Pulmonary 06/10/24 06/10/24 06/10/24 11:15 11:16 11:17 Home O2 Evaluation [Oxygen] -Test Phase Exercise Exercise Exercise -Oxygen Delivery Nasal Cannula Nasal Cannula Nasal Cannula -Oxygen Flow Rate (L/min) 2 3 4 [Pulse Oximetry] -Pulse Oximetry (90-100 %) 87 L 88 L 90 [Pulse Rate] -Pulse Rate (60-100 beats/min) 100 101 H [Comments] -Home Oxygen Evaluation Comments Pt requires 2 l at rest and 4 l with activity [Charges] -Evaluation Charges 06/10/24 11:30 Home O2 Evaluation [Oxygen] -Test Phase Resting -Oxygen Delivery Nasal Cannula -Oxygen Flow Rate (L/min) 2 [Pulse Oximetry] -Pulse Oximetry (90-100 %) 92 [Pulse Rate] -Pulse Rate (60-100 beats/min) 90 [Comments] -Home Oxygen Evaluation Comments [Charges] -Evaluation Charges
== END 2024-06-10 10:52 | disposition home or self-care (01) ==
LOC: ANHPFT 10:54
PROVIDERS: PCP Family Medicine; Visit Provider Physician Assistant
DX: J44.9 Chronic obstructive pulmonary disease, unspecified (principal)
CPT/HCPCS: 94618